=== PATIENT | female | born 1965 ===

== ENCOUNTER 2017-07-02 09:33 | Inpatient (IN) | payer BC ==
[2017-07-02 09:43] VITALS: BMI 28.3
[2017-07-02] MEDS ORDERED: Sodium Chloride 0.9% 1,000 ML IV STA (10:10)
--- NOTE | 2017-07-02 10:19 | ED PDOC ---
Arrival/HPI - General Chief Complaint: ENT Problem Time Seen by Provider: 07/02/17 10:09 Historian: Patient - History of Present Illness Narrative History of Present Illness (Text): 07/02/17 10:10 Siria Morton is a 52 year old female who presents to the emergency department complaining of a sore throat for 3 days. Patient states that she saw her PMD and was prescribed Augmentin, but still has symptoms. Patient denies any other complaints at this time. PMD: Dr. Hernandez Time/Duration: < week Symptom Onset: Gradual Symptom Course: Unchanged Context: Home Past Medical History - Provider Review Nursing Documentation Reviewed: Yes - Infectious Disease Hx of Infectious Diseases: None - Cardiac Hx Cardiac Disorders: Yes Hx Hypertension: Yes - Pulmonary Hx Respiratory Disorders: No - HEENT Hx HEENT Disorder: No - Renal Hx Renal Disorder: No - Endocrine/Metabolic Hx Endocrine Disorders: No - Hematological/Oncological Hx Blood Disorders: No - Integumentary Hx Dermatological Disorder: No - Musculoskeletal/Rheumatological Hx Musculoskeletal Disorders: No - Gastrointestinal Hx Gastrointestinal Disorders: No - Genitourinary/Gynecological Hx Genitourinary Disorders: No - Psychiatric Hx Psychophysiologic Disorder: No Hx Substance Use: No - Surgical History Hx Section: Yes - Anesthesia Hx Anesthesia: Yes Hx Anesthesia Reactions: No Family/Social History - Physician Review Nursing Documentation Reviewed: Yes Family/Social History: No Known Family HX Smoking Status: Never Smoked Hx Alcohol Use: No Hx Substance Use: No Allergies/Home Meds Allergies/Adverse Reactions: Allergies No Known Allergies Allergy (Verified 07/02/17 09:43) Home Medications: Home Meds Medication Instructions Recorded Confirmed Hydrochlorothiazide [Microzide] 12.5 mg PO DAILY 07/02/17 07/02/17 Rosuvastatin Calcium [Crestor] 20 mg PO DAILY 07/02/17 07/02/17 Physical Exam - Physical Exam Narrative Physical Exam (Text): - Review of Systems Constitutional: Normal. absent: Fatigue, Weight Change, Fevers Eyes: Normal ENT: Sore Throat. Respiratory: Normal absent: SOB, Cough, Sputum Cardiovascular: Normal absent: Chest pain, Palpitations, Syncope Gastrointestinal: Normal absent: Abdominal pain, Diarrhea, Nausea, Vomiting Genitourinary: Normal. absent: Dysuria, Frequency, Hematuria Musculoskeletal: Normal. absent: Arthralgias, Back Pain, Neck Pain Skin: Normal Neurological: Normal absent: Focal Weakness Endocrine: Normal Hemo/Lymphatic: Normal Psychiatric: Normal - Physical exam Patient appears age appropriate, speaking full sentences without difficulty. - Systems Exam Head: Present: Atraumatic, Normocephalic Pupils: Present: PERRL Extraocular Muscles: Present: EOMI Conjunctiva: Present: Normal Ears: Normal. Mouth: Bilateral Tonsilar exudates with swelling. No airway compromised. No pain with hyoid manipulation. No floor of mouth pain or elevation. Neck: Present: Normal Range of Motion. No: MIDLINE TENDERNESS, Paraspinal Tenderness Respiratory/Chest: Present: Clear to Auscultation, Good Air Exchange. No: Respiratory Distress, Accessory Muscle Use, Tachypnic Cardiovascular: Present: Regular Rate and Rhythm, Normal S1, S2, Peripheral Pulses Present. No: Murmurs Abdomen: Present: Normal Bowel Sounds, No: Tenderness, Peritoneal Signs, Rebound, Guarding, Distention Back: Present: Normal Inspection. No: Midline Tenderness, Paraspinal Tenderness Upper Extremity: Present: Normal Inspection. No: Cyanosis, Edema Lower Extremity: Present: Normal Inspection. No: Edema Neurological: Present: GCS=15, Speech Normal, cranial nerves II through XII fully intact with no cerebellar abnormality, neuro-sensory fully intact. No focal neurological deficits. Skin: Present: Warm, Dry, Normal Color. No: Rashes Lymphatic: Present: OX3, NI, NC Psychiatric: Present: Alert, Oriented x 3, Normal Insight, Normal Concentration Vital Signs Reviewed: Yes Vital Signs Temp Pulse Resp BP Pulse Ox 07/02/17 12:00 99.9 F H 108 H 18 126/73 98 07/02/17 10:15 104.0 F H 148 H 18 136/89 98 07/02/17 09:44 99.3 F 150 H 20 137/93 H 97 Temperature: Afebrile Blood Pressure: Hypertensive Pulse: Tachycardic Respiratory Rate: Normal Appearance: Positive for: Well-Appearing, Non-Toxic, Comfortable Mental Status: Positive for: Alert and Oriented X 3 - Systems Exam Pharnyx: No: Muffled/Hoarse Voice, Strider, Soft Palate/Uvular Edema Medical Decision Making ED Course and Treatment: 07/02/17 10:10 Impression: 52 year old complaining of a sore throat for 3 days. Differential Diagnosis included but are not limited to: Pharyngitis vs. Tonsillitis vs. Peritonsillar abscess Plan: -- Neck CT soft tissue with contrast -- Blood Culture -- Throat Culture -- Labs -- Tylenol, Cleocin, Toradol, and IV fluids -- Reassess and disposition Progress Notes: EKG shows Sinus Tachycardia at [address]-segment elevations, normal intervals. Interpreted by me. 07/02/17 13:07 Lapeler : Sukhdev Tamez MD PROCEDURE: CT NECK WITH CONTRAST NASOPHARYNX: Mild swelling of the adenoids SUPRAHYOID NECK: There is severe swelling of the left palatine tonsil which measures 25 mm in thickness compared to the right side which is 14 mm. This is seen on image 28 series 2. There is no evidence of a tonsillar abscess. There is no evidence of retropharyngeal soft tissue swelling INFRAHYOID NECK: Unremarkable larynx, hypopharynx, and supraglottic space. Vocal cords intact. MASS: None. GLANDS: Parotid and submandibular glands unremarkable. Normal size thyroid gland, without nodule. LYMPH NODES: Enlarged cervical lymph nodes are seen bilaterally. The largest node is seen on the left side image 37. This measures 19 mm in length. CERVICAL SPINE: No fracture or focal lesion. VASCULAR STRUCTURES: Unremarkable. OTHER FINDINGS: None. IMPRESSION: Swelling of the left palatine tonsil without evidence of tonsillar abscess. Bilateral cervical adenopathy Pt with no airway compromise fever decreased abx given pt states she has no PMD at [facility] agrees for observation dw Dr. Gilmore, accepted to med/surg obs to her service Cayla Frederick and Robi senior consult - Lab Interpretations Lab Results: 07/02/17 10:15 07/02/17 10:15 Lab Results 07/02/17 10:15: Sodium 134, Potassium 3.8, Chloride 94 L, Carbon Dioxide 25, Anion Gap 19, BUN 12, Creatinine 0.8, Est GFR ( Amer) > 60, Est GFR (Non- Af Amer) > 60, Random Glucose 174 H, Calcium 9.7, Total Bilirubin 1.0, AST 23, ALT 24, Alkaline Phosphatase 84, Total Protein 9.3 H, Albumin 4.5, Globulin 4.8 , Albumin/Globulin Ratio 0.9 L 07/02/17 10:15: PT 12.8 H, INR 1.19 H, APTT 42.8 H 07/02/17 10:15: WBC 22.0 H, RBC 4.98, Hgb 14.3, Hct 41.1, MCV 82.5, MCH 28.7, MCHC 34.8, RDW 14.9 H, Plt Count 234, MPV 10.1, Neutrophils % (Manual) 83 H, Band Neutrophils % 6 H, Lymphocytes % (Manual) 6 L, Monocytes % (Manual) 4, Eosinophils % (Manual) 1, Platelet Evaluation Normal I have reviewed the lab results: Yes - RAD Interpretation Radiology Orders: 07/02/17 10:10 NECK SOFT TISSUE W/CONTRAST [CT] Stat - Medication Orders Current Medication Orders: Discontinued Medications Acetaminophen (Tylenol 325mg Tab) 975 mg PO STAT STA Stop: 07/02/17 10:10 Last Admin: 07/02/17 10:35 Dose: 975 mg Dexamethasone (Decadron Inj) 10 mg IVP STAT STA Stop: 07/02/17 13:12 Clindamycin Phosphate 600 mg/ (Sodium Chloride) 54 mls @ 108 mls/hr IVPB STAT STA PRN Reason: Protocol Stop: 07/02/17 10:39 Last Admin: 07/02/17 10:35 Dose: 108 mls/hr Sodium Chloride (Sodium Chloride 0.9%) 1,000 mls @ 1,000 mls/hr IV .Q1H STA Stop: 07/02/17 11:09 Last Admin: 07/02/17 10:36 Dose: 1,000 mls/hr Iohexol (Omnipaque 350 100 Ml) Confirm Administered Dose 350 mg .ROUTE .STK-MED ONE Stop: 07/02/17 11:11 Ketorolac Tromethamine (Toradol) 30 mg IVP STAT STA Stop: 07/02/17 10:10 Last Admin: 07/02/17 10:35 Dose: 30 mg - Scribe Statement The provider has reviewed the documentation as recorded by the Celeste Crews Provider Scribe Attestation: All medical record entries made by the Scribyaquelin were at my direction and personally dictated by me. I have reviewed the chart and agree that the record accurately reflects my personal performance of the history, physical exam, medical decision making, and the department course for this patient. I have also personally directed, reviewed, and agree with the discharge instructions and disposition. Disposition/Present on Arrival - Present on Arrival Any Indicators Present on Arrival: No History of DVT/PE: No History of Uncontrolled Diabetes: No Urinary Catheter: No History of Decub. Ulcer: No History Surgical Site Infection Following: None - Disposition Have Diagnosis and Disposition been Completed?: Yes Diagnosis: Tonsillitis Disposition: HOSPITALIZED Disposition Time: 13:11 Patient Plan: Observation Patient Problems: Current Active Problems Problem Status Onset Tonsillitis Acute Condition: FAIR
[2017-07-02 10:45] LABS: HEMOGLOBIN 14.3 g/dL (12.0-16.0); MEAN CELL VOLUME 82.5 fl (80.0-105.0); MEAN CORPUSCULAR HEMOGLOBIN 28.7 pg (25.0-35.0); MEAN CORPUSCULAR HGB CONC 34.8 g/dl (31.0-37.0); MEAN PLATELET VOLUME 10.1 fl (7.0-11.0); PLATELET COUNT 234 10^3/uL (120.0-450.0); RBC 4.98 10^6/uL (3.5-6.1); RED CELL DISTRIBUTION WIDTH 14.9 % (11.5-14.5)
[2017-07-02 10:57] LABS: ALB/GLOB RATIO 0.9 (1.1-1.8); ALBUMIN 4.5 g/dL (3.0-4.8); ALT/SGPT 24 U/L (7-56); AST/SGOT 23 U/L (15-39); BLOOD UREA NITROGEN 12 mg/dL (7-21); CALCIUM 9.7 mg/dL (8.4-10.5); GFR AFRICAN-AMERICAN > 60; GFR NON-AFRICAN AMERICAN > 60
[2017-07-02 10:59] LABS: INR 1.19 (0.93-1.08); PARTIAL THROMBOPLASTIN TIME 42.8 Seconds (23.7-30.8); PROTHROMBIN TIME 12.8 Seconds (9.9-11.8)
[2017-07-02] MEDS ORDERED: Iohexol 350 MG/100 ML VIAL ONE (11:10)
[2017-07-02 11:11] LABS: BAND 6 % (0-2); EOSINOPHIL 1 % (0.0-3.0); LYMPHOCYTE 6 % (22.0-35.0); MONOCYTE 4 % (1.0-6.0); NEUTROPHIL 83 % (50.0-70.0)
[2017-07-02 11:12] LABS: PLATELET ESTIMATE NORMAL (NORMAL)
--- NOTE | 2017-07-02 11:55 | CT ---
PROCEDURE: CT NECK WITH CONTRAST HISTORY: r/o abscess COMPARISON: None TECHNIQUE: CT of the neck with intravenous contrast. Coronal and sagittal reformats generated. Intravenous contrast dose: 100 cc of Omni 350 Radiation dose: DLP 347 mGy-cm This CT exam was performed using one or more of the following dose reduction techniques: Automated exposure control, adjustment of the mA and/or kV according to patient size, and/or use of iterative reconstruction technique. FINDINGS: NASOPHARYNX: Mild swelling of the adenoids SUPRAHYOID NECK: There is severe swelling of the left palatine tonsil which measures 25 mm in thickness compared to the right side which is 14 mm. This is seen on image 28 series 2. There is no evidence of a tonsillar abscess. There is no evidence of retropharyngeal soft tissue swelling INFRAHYOID NECK: Unremarkable larynx, hypopharynx, and supraglottic space. Vocal cords intact. MASS: None. GLANDS: Parotid and submandibular glands unremarkable. Normal size thyroid gland, without nodule. LYMPH NODES: Enlarged cervical lymph nodes are seen bilaterally. The largest node is seen on the left side image 37. This measures 19 mm in length. CERVICAL SPINE: No fracture or focal lesion. VASCULAR STRUCTURES: Unremarkable. OTHER FINDINGS: None. IMPRESSION: Swelling of the left palatine tonsil without evidence of tonsillar abscess. Bilateral cervical adenopathy
[2017-07-02] MEDS ORDERED: HYDROmorphone 0.5 mg/0.5 ml ISec IVP PRN (16:24)
--- NOTE | 2017-07-02 16:26 | CARD ---
APPROVED REPORT EKG Measurement Heart [id number] <Conclusion> Sinus tachycardia Nonspecific T wave abnormality Abnormal ECG
[2017-07-02] MEDS: Sodium Chloride 0.9% 1,000 ML IV SCH (17:31)
[2017-07-02] MEDS ORDERED: Pneumococcal 23-Valent Vaccine IM ONE (17:55)
--- NOTE | 2017-07-02 19:06 | CP.PCM.CON ---
History of Present Illness - History of Present Illness History of Present Illness: Infectious Disease Consultation: July 02, 2017 52 yo female with 3 day history of sore throat who received Augmentin for treatment from her PMD with no improvement. PMHx: HTN CAD PSHx: Allergies: NKDA Social Hx: No tobacco, EtOH, or illicit drug use Active Medications Atorvastatin Calcium (Lipitor) 80 mg PO DIN [facility] Last Admin: 07/02/17 17:30 Dose: 80 mg Hydrochlorothiazide (Microzide) 12.5 mg PO DAILY [facility] Hydromorphone HCl (Dilaudid) 0.5 mg IVP Q4H PRN PRN Reason: Pain, Mild (1-3) Last Admin: 07/02/17 17:38 Dose: 0.5 mg Ceftriaxone Sodium (Rocephin 1 Gram Ivpb) 1 gm in 100 mls @ 100 mls/hr IVPB DAILY [facility] PRN Reason: Protocol Sodium Chloride (Sodium Chloride 0.9%) 1,000 mls @ 100 mls/hr IV .Q10H [facility] Last Admin: 07/02/17 17:31 Dose: 100 mls/hr Methylprednisolone (Solu-Medrol) 40 mg IVP Q12 [facility] Pantoprazole Sodium (Protonix Inj) 40 mg IVP DAILY [facility] Family Hx: none given ROS: sore throat, cough. No fevers, chills, nausea, vomiting, diarrhea, headaches, dizziness, chest pain, abdominal pain, melena, hematuria, hematemesis, hematochezia, depression, anxiety. Past Patient History - Infectious Disease Hx of Infectious Diseases: None - Past Social History Smoking Status: Never Smoked - CARDIAC Hx Cardiac Disorders: Yes Hx Hypercholesterolemia: Yes Hx Hypertension: Yes - PULMONARY Hx Respiratory Disorders: No - HEENT Hx HEENT Problems: No - RENAL Hx Chronic Kidney Disease: No - ENDOCRINE/METABOLIC Hx Endocrine Disorders: No - HEMATOLOGICAL/ONCOLOGICAL Hx Blood Disorders: No - INTEGUMENTARY Hx Dermatological Problems: No - MUSCULOSKELETAL/RHEUMATOLOGICAL Hx Falls: No - GASTROINTESTINAL Hx Gastrointestinal Disorders: No - GENITOURINARY/GYNECOLOGICAL Hx Genitourinary Disorders: No - PSYCHIATRIC Hx Substance Use: No - SURGICAL HISTORY Hx Surgeries: Yes (c section x2) - ANESTHESIA Hx Anesthesia: Yes Hx Anesthesia Reactions: No Meds Allergies/Adverse Reactions: Allergies Allergy/AdvReac Type Severity Reaction Status Date / Time No Known Allergies Allergy Verified 07/02/17 09:43 - Medications Medications: Current Medications Atorvastatin Calcium (Lipitor) 80 mg PO DIN [facility] Last Admin: 07/02/17 17:30 Dose: 80 mg Hydrochlorothiazide (Microzide) 12.5 mg PO DAILY [facility] Hydromorphone HCl (Dilaudid) 0.5 mg IVP Q4H PRN PRN Reason: Pain, Mild (1-3) Last Admin: 07/02/17 17:38 Dose: 0.5 mg Ceftriaxone Sodium (Rocephin 1 Gram Ivpb) 1 gm in 100 mls @ 100 mls/hr IVPB DAILY [facility] PRN Reason: Protocol Sodium Chloride (Sodium Chloride 0.9%) 1,000 mls @ 100 mls/hr IV .Q10H [facility] Last Admin: 07/02/17 17:31 Dose: 100 mls/hr Methylprednisolone (Solu-Medrol) 40 mg IVP Q12 [facility] Pantoprazole Sodium (Protonix Inj) 40 mg IVP DAILY [facility] Physical Exam - Constitutional Appears: Non-toxic, No Acute Distress - Head Exam Head Exam: ATRAUMATIC, NORMOCEPHALIC - Eye Exam Eye Exam: EOMI, PERRL Pupil Exam: NORMAL ACCOMODATION, PERRL - ENT Exam ENT Exam: Mucous Membranes Moist, Normal External Ear Exam, TM's Normal Bilaterally - Neck Exam Neck exam: Positive for: Full Rom, Normal Inspection - Respiratory Exam Respiratory Exam: Clear to Auscultation Bilateral, NORMAL BREATHING PATTERN. absent: Rales, Rhonchi, Wheezes - Cardiovascular Exam Cardiovascular Exam: REGULAR RHYTHM, RRR, +S1, +S2 - GI/Abdominal Exam GI & Abdominal Exam: Normal Bowel Sounds, Soft. absent: Distended, Tenderness - Extremities Exam Extremities exam: Positive for: full ROM, normal inspection - Neurological Exam Neurological exam: Alert, CN II-XII Intact, Oriented x3 - Psychiatric Exam Psychiatric exam: Normal Affect, Normal Mood - Skin Skin Exam: Intact, Normal Color Results - Vital Signs Recent Vital Signs: Last Vital Signs Temp 99.9 F H 07/02/17 17:46 Pulse 105 H 07/02/17 17:46 Resp 18 07/02/17 17:46 BP 124/79 07/02/17 17:46 Pulse Ox 99 07/02/17 17:13 - Labs Result Diagrams: 07/02/17 10:15 07/02/17 10:15 Assessment & Plan - Assessment and Plan (Free Text) Assessment: 52 yo female with presentation of sore throat for three days. CT scan done showing left tonsilitis ([place]) without evidence of abscess. Bilateral cervical adenopathy seen on CT scan. Supportive care. Was on Augmentin for antibiotic treatment. Given Clindamycin in ER and started on Ceftriaxone for treatment. Will continue Ceftrixone and restart Clindamycin IV 600 mg q8hrs for antibiotic treatment. Thank you for allowing me to participate in the care of the patient, we will follow with you.
[2017-07-02] MEDS: MethylPREDNISolone 40 mg Vial IVP SCH (22:14)
[2017-07-03 07:23] LABS: HEMOGLOBIN 12.4 g/dL (12.0-16.0); MEAN CELL VOLUME 82.2 fl (80.0-105.0); MEAN CORPUSCULAR HEMOGLOBIN 27.9 pg (25.0-35.0); MEAN CORPUSCULAR HGB CONC 33.9 g/dl (31.0-37.0); MEAN PLATELET VOLUME 10.4 fl (7.0-11.0); RBC 4.45 10^6/uL (3.5-6.1); RED CELL DISTRIBUTION WIDTH 14.9 % (11.5-14.5); WHITE BLOOD COUNT 20.5 10^3/ul (4.5-11.0)
[2017-07-03 07:31] LABS: BLOOD UREA NITROGEN 12 mg/dL (7-21); GFR AFRICAN-AMERICAN > 60; GFR NON-AFRICAN AMERICAN > 60
[2017-07-03 07:32] LABS: CALCIUM 9.5 mg/dL (8.4-10.5); HDL CHOLESTEROL 31 mg/dL (29-60)
[2017-07-03 07:33] LABS: % IRON SATURATION 26 % (20-55); IRON 53 ug/dL (45-180); TOTAL IRON BINDING CAPACITY 202 ug/dL (265-497)
[2017-07-03 07:43] LABS: LDL CHOLESTEROL 96 mg/dL (0-129)
--- NOTE | 2017-07-03 07:49 | HP ---
CHIEF COMPLAINT: Throat pain and cannot swallow. HISTORY OF PRESENT ILLNESS: Ms. Siria Morton is a 52-year-old came to the emergency room complaining about sore throat for 3 days, cannot swallow, cannot eat. The patient saw her primary care physician, Dr. Hernandez, got Augmentin, but no relief. Still has symptoms. No nausea, vomiting, or diarrhea. No fever. No chills. No headaches or dizziness. I saw the patient in her room in the presence of her and her nurse. PAST MEDICAL HISTORY: Hypertension and section. FAMILY HISTORY: Father and mother noncontributory. HABITS: Never smoked. No drug. No ethanol. ALLERGIES: THE PATIENT IS NOT ALLERGIC TO ANY MEDICATIONS. HOME MEDICATIONS: Crestor, hydrochlorothiazide, and Augmentin. REVIEW OF SYSTEMS: The patient is seen and examined at the bedside in the presence of the . Still complaining about sore throat. Cannot swallow. No nausea, vomiting, or diarrhea. No fever. No chills. No headache. No dizziness. PHYSICAL EXAMINATION: VITAL SIGNS: Temperature 99.9, T-max of 104.0, pulse 105, blood pressure 125/79, and respiratory rate 18. HEENT: Head is normocephalic and atraumatic. Eyes, PERRLA. Extraocular muscles intact. Conjunctivae clear. Nose patent. Mucous membranes moist. NECK: Supple. No carotid bruits, no thyromegaly. CHEST: Bilaterally symmetrical. HEART: S1 and S2 positive. LUNGS: Clear to auscultation. ABDOMEN: Soft. Bowel sounds present. No organomegaly. EXTREMITIES: No edema. No cyanosis. NEUROLOGIC: The patient is awake and alert. Moving all 4 extremities. No focal neurological deficit. MEDICATIONS: Started on clindamycin, Dilaudid, Lipitor, Lovenox, hydrochlorothiazide, Rocephin, and Solu-Medrol. LABORATORY DATA: White blood cells 22, hemoglobin 14.3, hematocrit 41.1, and platelets 234. Sodium 134, potassium 3.4, BUN 12, creatinine 0.8, glucose 174, and total protein 9.3. ASSESSMENT PLAN: Ms. Siria Morton is a 52-year-old female with leukocytosis, hypochloremia, hyperglycemia, came with the sore throat, fever of 104, seen by Infectious Disease Dr. Rosenbaum. CAT scan done showed left tonsillitis, palatine without evidence of the abscess, bilateral cervical adenopathy seen on CAT scan. Separate supportive care. Now started on clindamycin in ER and ceftriaxone. We will continue ceftriaxone and clindamycin. Warm water salt gargles. ENT and ID called. Discussion done with the family. Tylenol for fever. Started on steroids to decrease inflammation and Dilaudid given for pain, Lipitor for hypertriglyceridemia, Lovenox for DVT prophylaxis, and pantoprazole given for GI prophylaxis. Repeat laboratories. We will followup. Michelle Gilmore MD
[2017-07-03] MEDS: Enoxaparin 40 mg Syringe SC SCH (10:16)
[2017-07-03] MEDS: MethylPREDNISolone 40 mg Vial IVP SCH ×2 (10:17→22:03)
[2017-07-03] MEDS: cefTRIAXone 1 gm 1 GM/100 ML BAG IVPB SCH (10:20)
[2017-07-03 11:24] LABS: URINE BILIRUBIN NEGATIVE (NEGATIVE); URINE BLOOD TRACE-LYSED (NEGATIVE); URINE GLUCOSE (UA) NEGATIVE (NEGATIVE); URINE LEUKOCYTE ESTERASE NEGATIVE Leu/uL (NEGATIVE); URINE NITRATE NEGATIVE (NEGATIVE); URINE PROTEIN NEGATIVE mg/dL (<30 mg/dL); URINE UROBILINOGEN 0.2 E.U./dL (<1 E.U./dL)
[2017-07-03 11:26] LABS: URINE APPEARANCE CLEAR (CLEAR); URINE COLOR LIGHT YELLOW (YELLOW)
[2017-07-03 11:27] LABS: HCG,QUALITATIVE URINE NEGATIVE (NEGATIVE)
[2017-07-03 11:30] LABS: URINE BACTERIA FEW (NEG); URINE RBC 0 - 2 /hpf (0-2); URINE WBC 0 - 2 /hpf (0-6)
[2017-07-03 12:47] LABS: FOLATE > 20.0 ng/mL
--- NOTE | 2017-07-03 17:10 | CP.PCM.PN ---
Subjective - Date & Time of Evaluation Date of Evaluation: 07/03/17 Time of Evaluation: 16:55 - Subjective Subjective: Infectious Disease Follow Up: July 03, 2017 52 yo female with 3 day history of sore throat who received Augmentin for treatment from her PMD with no improvement. Fevers at home up to 103 F. One episode of fever overnight of 104.0 F. Patient with left palatine tonsilitis. The patient with drainage from the enlarged tonsil but the patient states that she is breathing better and able to swallow now. Currently on Clindamycin and Rocephin for antibiotic treatment. Leukocytosis slightly improved to 20.5 today. Afebrile today so far. Objective - Vital Signs/Intake and Output Vital Signs (last 24 hours): Temp Pulse Resp BP Pulse Ox 97.5 F L 90 20 125/84 99 07/03/17 08:10 07/03/17 08:10 07/03/17 08:10 07/03/17 08:10 07/03/17 08:10 Intake and Output: 07/03/17 07/03/17 06:59 18:59 Intake Total 2460 780 Balance 2460 780 - Medications Medications: Current Medications Atorvastatin Calcium (Lipitor) 80 mg PO DIN [facility] Last Admin: 07/02/17 17:30 Dose: 80 mg Enoxaparin Sodium (Lovenox) 40 mg SC DAILY [facility] PRN Reason: Protocol Last Admin: 07/03/17 10:16 Dose: 40 mg Hydrochlorothiazide (Microzide) 12.5 mg PO DAILY [facility] Last Admin: 07/03/17 10:19 Dose: 12.5 mg Hydromorphone HCl (Dilaudid) 0.5 mg IVP Q4H PRN PRN Reason: Pain, Mild (1-3) Last Admin: 07/02/17 17:38 Dose: 0.5 mg Ceftriaxone Sodium (Rocephin 1 Gram Ivpb) 1 gm in 100 mls @ 100 mls/hr IVPB DAILY [facility] PRN Reason: Protocol Last Admin: 07/03/17 10:20 Dose: 100 mls/hr Sodium Chloride (Sodium Chloride 0.9%) 1,000 mls @ 100 mls/hr IV .Q10H [facility] Last Admin: 07/02/17 17:31 Dose: 100 mls/hr Clindamycin Phosphate 600 mg/ (Sodium Chloride) 54 mls @ 102 mls/hr IVPB Q8 [facility] PRN Reason: Protocol Last Admin: 07/03/17 14:16 Dose: 102 mls/hr Methylprednisolone (Solu-Medrol) 40 mg IVP Q12 [facility] Last Admin: 07/03/17 10:17 Dose: 40 mg Pantoprazole Sodium (Protonix Inj) 40 mg IVP DAILY [facility] Last Admin: 07/03/17 10:18 Dose: 40 mg - Labs Labs: 07/03/17 06:50 07/03/17 06:50 PT 12.8 Seconds (9.9-11.8) H 07/02/17 10:15 INR 1.19 (0.93-1.08) H 07/02/17 10:15 APTT 42.8 Seconds (23.7-30.8) H 07/02/17 10:15 - Constitutional Appears: Non-toxic, No Acute Distress - Head Exam Head Exam: ATRAUMATIC, NORMOCEPHALIC - Eye Exam Eye Exam: EOMI, PERRL Pupil Exam: NORMAL ACCOMODATION, PERRL - ENT Exam ENT Exam: Mucous Membranes Moist, Normal External Ear Exam, TM's Normal Bilaterally Additional comments: Left tonsilar swelling and erythema with drainage. - Neck Exam Neck Exam: Full ROM, Normal Inspection - Respiratory Exam Respiratory Exam: Clear to Ausculation Bilateral, NORMAL BREATHING PATTERN. absent: Rales, Rhonchi, Wheezes - Cardiovascular Exam Cardiovascular Exam: Tachycardia, RRR, +S1, +S2 - GI/Abdominal Exam GI & Abdominal Exam: Soft, Normal Bowel Sounds. absent: Distended, Tenderness - Extremities Exam Extremities Exam: Full ROM, Normal Inspection - Neurological Exam Neurological Exam: Alert, Awake, CN II-XII Intact, Oriented x3 - Psychiatric Exam Psychiatric exam: Normal Affect, Normal Mood - Skin Skin Exam: Intact, Normal Color Assessment and Plan - Assessment and Plan (Free Text) Assessment: 52 yo female with presentation of sore throat for three days. CT scan done showing left tonsilitis ([place]) without evidence of abscess. Bilateral cervical adenopathy seen on CT scan. Supportive care. Was on Augmentin for antibiotic treatment. Given Clindamycin in ER and started on Ceftriaxone for treatment. Will continue Ceftrixone and restart Clindamycin IV 600 mg q8hrs for antibiotic treatment. Culture currently negative to date. Supportive care. Awaiting ENT evaluation. The patient will likely need 14 days of antibiotics which can be finished orally based on the culture results. Thank you for allowing me to participate in the care of the patient, we will follow with you.
[2017-07-03] MEDS: Sodium Chloride 0.9% 1,000 ML IV SCH (22:04)
--- NOTE | 2017-07-04 00:24 | CP.PCM.PN ---
Subjective - Date & Time of Evaluation Date of Evaluation: 07/03/17 Time of Evaluation: 07:30 - Subjective Subjective: 52 yo female with 3 day history of sore throat who received Augmentin for treatment from her PMD with no improvement. Fevers at home up to 103 F. One episode of fever overnight of 104.0 F. Patient with left palatine tonsilitis. The patient with drainage from the enlarged tonsil but the patient states that she is breathing better and able to swallow now. Currently on Clindamycin and Rocephin for antibiotic treatment. Leukocytosis slightly improved to 20.5 today. Afebrile today so far. Objective - Vital Signs/Intake and Output Vital Signs (last 24 hours): Temp Pulse Resp BP Pulse Ox 98.1 F 94 H 20 136/91 H 99 07/03/17 16:00 07/03/17 16:00 07/03/17 16:00 07/03/17 16:00 07/03/17 16:00 Intake and Output: 07/03/17 07/04/17 18:59 06:59 Intake Total 780 630 Balance 780 630 - Medications Medications: Current Medications Atorvastatin Calcium (Lipitor) 80 mg PO DIN [facility] Last Admin: 07/03/17 17:48 Dose: 80 mg Enoxaparin Sodium (Lovenox) 40 mg SC DAILY [facility] PRN Reason: Protocol Last Admin: 07/03/17 10:16 Dose: 40 mg Hydrochlorothiazide (Microzide) 12.5 mg PO DAILY [facility] Last Admin: 07/03/17 10:19 Dose: 12.5 mg Hydromorphone HCl (Dilaudid) 0.5 mg IVP Q4H PRN PRN Reason: Pain, Mild (1-3) Last Admin: 07/02/17 17:38 Dose: 0.5 mg Ceftriaxone Sodium (Rocephin 1 Gram Ivpb) 1 gm in 100 mls @ 100 mls/hr IVPB DAILY [facility] PRN Reason: Protocol Last Admin: 07/03/17 10:20 Dose: 100 mls/hr Sodium Chloride (Sodium Chloride 0.9%) 1,000 mls @ 100 mls/hr IV .Q10H [facility] Last Admin: 07/03/17 22:04 Dose: 100 mls/hr Clindamycin Phosphate 600 mg/ (Sodium Chloride) 54 mls @ 102 mls/hr IVPB Q8 [facility] PRN Reason: Protocol Last Admin: 07/03/17 22:03 Dose: 102 mls/hr Methylprednisolone (Solu-Medrol) 40 mg IVP Q12 [facility] Last Admin: 07/03/17 22:03 Dose: 40 mg Pantoprazole Sodium (Protonix Inj) 40 mg IVP DAILY [facility] Last Admin: 07/03/17 10:18 Dose: 40 mg - Labs Labs: 07/03/17 06:50 07/03/17 06:50 PT 12.8 Seconds (9.9-11.8) H 07/02/17 10:15 INR 1.19 (0.93-1.08) H 07/02/17 10:15 APTT 42.8 Seconds (23.7-30.8) H 07/02/17 10:15 - Constitutional Appears: Well - Head Exam Head Exam: ATRAUMATIC, NORMAL INSPECTION, NORMOCEPHALIC - Eye Exam Eye Exam: EOMI, Normal appearance, PERRL Pupil Exam: NORMAL ACCOMODATION, PERRL - ENT Exam ENT Exam: Mucous Membranes Moist, Normal Exam - Neck Exam Neck Exam: Full ROM, Normal Inspection. absent: Lymphadenopathy - Respiratory Exam Respiratory Exam: Clear to Ausculation Bilateral, NORMAL BREATHING PATTERN - Cardiovascular Exam Cardiovascular Exam: REGULAR RHYTHM, +S1, +S2. absent: Murmur - GI/Abdominal Exam GI & Abdominal Exam: Soft, Normal Bowel Sounds. absent: Tenderness - Rectal Exam Rectal Exam: NORMAL INSPECTION - Exam Exam: Circumcision, NORMAL INSPECTION External exam: NORMAL EXTERNAL EXAM Speculum exam: NORMAL SPECULUM EXAM Bimanual exam: NORMAL BIMANUAL EXAM - Extremities Exam Extremities Exam: Full ROM, Normal Capillary Refill, Normal Inspection. absent : Joint Swelling, Pedal Edema - Back Exam Back Exam: NORMAL INSPECTION - Neurological Exam Neurological Exam: Alert, Awake, CN II-XII Intact, Normal Gait, Oriented x3 - Psychiatric Exam Psychiatric exam: Normal Affect, Normal Mood - Skin Skin Exam: Dry, Intact, Normal Color, Warm Assessment and Plan - Assessment and Plan (Free Text) Assessment: 52 yo female with presentation of sore throat for three days. CT scan done showing left tonsilitis ([place]) without evidence of abscess. Bilateral cervical adenopathy seen on CT scan. Supportive care. Was on Augmentin for antibiotic treatment. Given Clindamycin in ER and started on Ceftriaxone for treatment. Will continue Ceftrixone and restart Clindamycin IV 600 mg q8hrs for antibiotic treatment. Culture currently negative to date. Supportive care. Awaiting ENT evaluation , not done yet . The patient will likely need 14 days of antibiotics which can be finished orally based on the culture results.gi dvt prophylaxes
--- NOTE | 2017-07-04 01:39 | CON ---
DATE: 07/03/2017 REASON FOR CONSULTATION: Exudative tonsillitis. CONSULTING PHYSICIAN: Augustine Frederick DO. REFERRING PHYSICIAN: Mejia Polanco DO. HISTORY OF PRESENT ILLNESS: This is a 52-year-old female with past medical history of hypertension, comes in complaining of a sore throat for 3 days. The patient reports that she has been having difficulty eating, drinking and tolerating p.o. as the pain has been significant. The patient does not report any shortness of breath, difficulty breathing; however, she does report fever of 103 at home. She saw her primary care physician who prescribed her Augmentin, which she took 3 pills without resolution of her symptoms; therefore, she presented to the emergency room. The patient also reports that she has very dry nares and has some pain in her nose with some redness associated to the columellar region, which occurs about a few times a year and she feels that this may be associated with her throat pain. At this point, since being admitted and receiving IV antibiotics, she reports feeling a lot better since yesterday. She denies any otalgia, changes in vision, and any further fever or chills. At this point, she denies dysphagia or odynophagia, neck pain, chest pain. Denies any other ears, nose or throat complaints. PAST MEDICAL HISTORY: Hypertension. PAST SURGICAL HISTORY: . No head or neck surgeries. ALLERGIES: NO KNOWN DRUG ALLERGIES. HOME MEDICATIONS: Include, Crestor, hydrochlorothiazide, and Augmentin. SOCIAL HISTORY: Denies history of smoking or alcohol abuse. REVIEW OF SYSTEMS: Negative as per HPI. PHYSICAL EXAMINATION: GENERAL: She is awake, alert, and oriented X3. No acute distress, lying comfortably. VITAL SIGNS: Temperature is 97.5, pulse rate is 90, blood pressure is 125/84, respirations are 20, and O2 saturation is 99% on room air. HEENT: Eyes; extraocular movements intact. No visual changes. Ears; the external auricles are unremarkable. Nose; patent bilaterally. No discharge and no epistaxis, but the nasal mucosa did appear dry and she does have slight erythema to the columellar and also the septum muscle lips. Oral cavity; oropharynx looks unremarkable for mass. No edema, unremarkable. Her tongue is mobile and midline. Oral mucosa is moist and soft palate and uvula are midline and non-edematous. She does have enlarged tonsils that appear to be 3+ with tonsillar exudates on the left more than on the right. She also has tonsillar and pharyngeal erythema. NECK: Supple. Slightly tender to palpation more on the left. She does have reactive lymphadenopathy in level 2 on the left and level 1 on the right. Trachea is midline. No thyromegaly appreciated. RESPIRATORY: Nonlabored and symmetrical bilaterally. LABORATORY DATA: White blood cell count is 20.5, hemoglobin 12.2, hematocrit 36.6 and platelets 261. PT 12.8. INR 1.19, APTT 42.8. Sodium 140, potassium 4.2, chloride 103, bicarbonate 28, creatinine 0.5 and BUN 12. She has a rapid strep test that is pending. IMAGING: She has a CT of the neck, which reads as enlarged swelling of the palatine tonsils, left greater than the right without evidence of any peritonsillar abscess and this enlarged cervical lymph nodes bilaterally, bigger on the left than on the right. ASSESSMENT: This is a 52-year-old female who presents with exudative tonsillitis without evidence of peritonsillar abscess. At this point, we would recommend continuing medical management with IV antibiotics. We would continue clindamycin and would also follow up with the rapid strep test. If the patient does not seem to be improving, would also recommend ordering a monospot test. Chances are that the patient's complaint of some pain and redness to her nose, would consider treating her with Bactroban to the nares. Otherwise, at this point, the patient appears stable and seems to be improving. We would clear her for discharge from the ears, nose and throat perspective and sending her home with p.o. clindamycin. The remainder of the management is as per the primary team. Thank you for allowing us to participate in this patient's care. Augustine Frederick DO
[2017-07-04] MEDS: cefTRIAXone 1 gm 1 GM/100 ML BAG IVPB SCH (09:17)
[2017-07-04] MEDS: Sodium Chloride 0.9% 1,000 ML IV SCH (09:18)
[2017-07-04] MEDS: MethylPREDNISolone 40 mg Vial IVP SCH (09:18)
[2017-07-04] MEDS: Enoxaparin 40 mg Syringe SC SCH (09:18)
[2017-07-04 15:21] LABS: BASO # 0.01 K/mm3 (0.0-2.0); GRAN # 17.93 (1.4-6.5); GRAN % 86.6 % (50.0-68.0); HEMOGLOBIN 12.1 g/dL (12.0-16.0); LYMPH # 1.7 (1.2-3.4); LYMPH % 8.3 % (22.0-35.0); MEAN CELL VOLUME 83.1 fl (80.0-105.0); MEAN CORPUSCULAR HEMOGLOBIN 28.4 pg (25.0-35.0); MEAN CORPUSCULAR HGB CONC 34.2 g/dl (31.0-37.0); MEAN PLATELET VOLUME 10.3 fl (7.0-11.0); MONO # 1.1 (0.1-0.6); MONO % 5.1 % (1.0-6.0); PLATELET COUNT 350 10^3/uL (120.0-450.0); RBC 4.26 10^6/uL (3.5-6.1); RED CELL DISTRIBUTION WIDTH 14.9 % (11.5-14.5); WHITE BLOOD COUNT 20.7 10^3/ul (4.5-11.0)
--- NOTE | 2017-07-04 16:24 | CP.PCM.PN ---
Subjective - Date & Time of Evaluation Date of Evaluation: 07/04/17 Time of Evaluation: 16:00 - Subjective Subjective: Infectious Disease Follow Up: July 04, 2017 52 yo female with 3 day history of sore throat who received Augmentin for treatment from her PMD with no improvement. Fevers at home up to 103 F. One episode of fever overnight of 104.0 F. Patient with left palatine tonsilitis. The patient with drainage from the enlarged tonsil but the patient states that she is breathing better and able to swallow now. Currently on Clindamycin and Rocephin for antibiotic treatment. Leukocytosis of 20.7 today. Afebrile today so far. Patient able to eat without issues. No fevers. Patient eager to go home today. Objective - Vital Signs/Intake and Output Vital Signs (last 24 hours): Temp Pulse Resp BP Pulse Ox 97.9 F 88 20 139/90 100 07/04/17 08:00 07/04/17 08:00 07/04/17 08:00 07/04/17 08:00 07/04/17 08:00 Intake and Output: 07/04/17 07/04/17 06:59 18:59 Intake Total 120 540 Balance 120 540 - Medications Medications: Current Medications Atorvastatin Calcium (Lipitor) 80 mg PO DIN [facility] Last Admin: 07/03/17 17:48 Dose: 80 mg Enoxaparin Sodium (Lovenox) 40 mg SC DAILY [facility] PRN Reason: Protocol Last Admin: 07/04/17 09:18 Dose: 40 mg Hydrochlorothiazide (Microzide) 12.5 mg PO DAILY [facility] Last Admin: 07/04/17 09:17 Dose: 12.5 mg Hydromorphone HCl (Dilaudid) 0.5 mg IVP Q4H PRN PRN Reason: Pain, Mild (1-3) Last Admin: 07/02/17 17:38 Dose: 0.5 mg Ceftriaxone Sodium (Rocephin 1 Gram Ivpb) 1 gm in 100 mls @ 100 mls/hr IVPB DAILY [facility] PRN Reason: Protocol Last Admin: 07/04/17 09:17 Dose: 100 mls/hr Sodium Chloride (Sodium Chloride 0.9%) 1,000 mls @ 100 mls/hr IV .Q10H [facility] Last Admin: 07/04/17 09:18 Dose: 100 mls/hr Clindamycin Phosphate 600 mg/ (Sodium Chloride) 54 mls @ 102 mls/hr IVPB Q8 [facility] PRN Reason: Protocol Last Admin: 07/04/17 14:20 Dose: 102 mls/hr Methylprednisolone (Solu-Medrol) 40 mg IVP Q12 [facility] Last Admin: 07/04/17 09:18 Dose: 40 mg Pantoprazole Sodium (Protonix Inj) 40 mg IVP DAILY [facility] Last Admin: 07/04/17 09:18 Dose: 40 mg - Labs Labs: 07/04/17 15:16 PT 12.8 Seconds (9.9-11.8) H 07/02/17 10:15 INR 1.19 (0.93-1.08) H 07/02/17 10:15 APTT 42.8 Seconds (23.7-30.8) H 07/02/17 10:15 Assessment and Plan - Assessment and Plan (Free Text) Assessment: 52 yo female with presentation of sore throat for three days. CT scan done showing left tonsilitis ([place]) without evidence of abscess. Bilateral cervical adenopathy seen on CT scan. Supportive care. Was on Augmentin for antibiotic treatment. Given Clindamycin in ER and started on Ceftriaxone for treatment. Will continue Ceftrixone and restart Clindamycin IV 600 mg q8hrs for antibiotic treatment. Culture currently negative to date. Supportive care. Awaiting ENT evaluation. The patient will likely need 14 days of antibiotics which can be finished orally based on the culture results. She can go home with Augmentin 875 mg BID and Clindamycin 300 mg TID for 14 days. She can follow me as an outpatient in 2 weeks for ID followup. Thank you for allowing me to participate in the care of the patient, we will follow with you.
[2017-07-04 17:20] VITALS: BP 139/90; PULSE 88; RESP 20; TEMP 97.9; O2SAT 100
== END 2017-07-04 16:50 | disposition home or self-care (01) | DRG 153 ==
LOC: ED 09:33 → ERH 13:11 → 5RSO 14:33 → OBSVTOIN 07-04 00:25
PROVIDERS: ADMIT Internal Medicine; ATTEND Internal Medicine
DX: J03.90 Acute tonsillitis, unspecified (principal); I10 Essential (primary) hypertension; E78.1 Pure hyperglyceridemia; I25.10 Atherosclerotic heart disease of native coronary artery without angina pectoris; R59.0 Localized enlarged lymph nodes

== ENCOUNTER 2017-07-08 11:22 | Inpatient (IN) | payer BC ==
[2017-07-08 11:22] VITALS: BMI 28.3
--- NOTE | 2017-07-08 11:58 | ED PDOC ---
Arrival/HPI - General Chief Complaint: Fever Time Seen by Provider: 07/08/17 11:29 Historian: Patient - History of Present Illness Narrative History of Present Illness (Text): 07/08/17 11:58 52 y/o female, pmh including tonsillitis, nkda, c/o throat pain/fatigue/fever x 6 days. Pt. was seen in the ER about 1 week ago for bilateral tonsillitis with exudate, been on the clindamycin and augmentin, seen by the ENT and Infectious disease, still not feeling well, told to come back to the ER if not feeling better, admits bodyache, no night sweat, no rash, no numbness or tingling, no chest pain or shortness of breath, no palpitation, no dizziness, no other medical or psychological complaints. Past Medical History - Provider Review Nursing Documentation Reviewed: Yes - Infectious Disease Hx of Infectious Diseases: None - Reproductive Menopause: No - Cardiac Hx Cardiac Disorders: Yes Hx Hypertension: Yes - Pulmonary Hx Respiratory Disorders: No - HEENT Hx HEENT Disorder: No - Renal Hx Renal Disorder: No - Endocrine/Metabolic Hx Endocrine Disorders: No - Hematological/Oncological Hx Blood Disorders: No - Integumentary Hx Dermatological Disorder: No - Musculoskeletal/Rheumatological Hx Falls: No - Gastrointestinal Hx Gastrointestinal Disorders: No - Genitourinary/Gynecological Hx Genitourinary Disorders: No - Psychiatric Hx Psychophysiologic Disorder: No Hx Substance Use: No - Surgical History Hx Section: Yes - Anesthesia Hx Anesthesia: Yes Hx Anesthesia Reactions: No Family/Social History - Physician Review Nursing Documentation Reviewed: Yes Family/Social History: Unknown Family HX Smoking Status: Never Smoked Hx Alcohol Use: No Hx Substance Use: No Allergies/Home Meds Allergies/Adverse Reactions: Allergies No Known Allergies Allergy (Verified 07/02/17 09:43) Home Medications: Home Meds Medication Instructions Recorded Confirmed Hydrochlorothiazide [Microzide] 12.5 mg PO DAILY 07/02/17 07/08/17 Rosuvastatin Calcium [Crestor] 20 mg PO DAILY 07/02/17 07/08/17 Review of Systems - Review of Systems Constitutional: Fatigue, Fevers Eyes: absent: Vision Changes ENT: absent: Hearing Changes Respiratory: absent: SOB, Cough Cardiovascular: absent: Chest Pain Gastrointestinal: absent: Abdominal Pain, Nausea, Vomiting Musculoskeletal: Arthralgias, Myalgias Skin: absent: Rash, Pruritis Neurological: absent: Headache, Dizziness, Gait Changes, Speech Changes Physical Exam Vital Signs Reviewed: Yes Vital Signs Temp Pulse Resp BP Pulse Ox 07/08/17 15:55 100 H 18 111/68 100 07/08/17 14:00 109 H 18 112/64 98 07/08/17 12:18 132 H 17 119/79 99 07/08/17 11:43 100.3 F H 141 H 20 96/49 L 98 Temperature: Afebrile Pulse: Tachycardic Respiratory Rate: Normal Appearance: Positive for: Well-Appearing, Non-Toxic, Uncomfortable Pain Distress: Severe Mental Status: Positive for: Alert and Oriented X 3 - Systems Exam Head: Present: Atraumatic, Normocephalic Pupils: Present: PERRL Extroacular Muscles: Present: EOMI Conjunctiva: Present: Normal Ears: Present: NORMAL TM, Normal Canal. No: Erythema Mouth: Present: Moist Mucous Membranes Pharnyx: Present: TONSILS ENLARGED (Rt. tonsil with mild exudate). No: ERYTHEMA , Peritonsilar Swelling, Uvular Deviation, Muffled/Hoarse Voice, [place], Soft Palate/Uvular Edema Neck: Present: Normal Range of Motion, Trachea Midline. No: Meningeal Signs, MIDLINE TENDERNESS, Paraspinal Tenderness, Lymphadenopathy Respiratory/Chest: Present: Clear to Auscultation, Good Air Exchange. No: Respiratory Distress, Accessory Muscle Use Cardiovascular: Present: Regular Rate and Rhythm, Normal S1, S2. No: Murmurs Abdomen: Present: Normal Bowel Sounds. No: Tenderness, Distention, Peritoneal Signs Back: Present: Normal Inspection. No: CVA Tenderness Upper Extremity: Present: Normal Inspection. No: Cyanosis, Edema Lower Extremity: Present: Normal Inspection. No: Edema Neurological: Present: GCS=15, Speech Normal, Motor Func Grossly Intact, Gait Normal, Memory Normal Skin: Present: Warm, Dry, Normal Color. No: Rashes Psychiatric: Present: Alert, Oriented x 3, Normal Insight, Normal Concentration Medical Decision Making ED Course and Treatment: 07/08/17 12:16 -Labs/blood culture/vbg/monospot -IVF/toradol/tylenol -ekg/chest xray -will reasses 07/08/17 13:58 -EKG:Sinus Tachycardia @ 137 BPM, no ST elevation or depression, no T wave inversion. -Throat culture from last visit is negative: this is likely mono. -Chest x-ray: no active disease -Labs show: wbc 19 with elevation of LFT. Lactate is 2.0 -UA show no UTI -IV rocephine ordered. -Pt. is fatigue, still tachycardic, will need admission and pending for the mono test til result which it can take 1-2 days. -Paging Dr. Gilmore for admission. 07/08/17 15:15 -I spoke to Dr. Gilmore, discussed about the vital signs/labs/treatment and observation plan with Dr. Rosenbaum as routine consult. -I discussed with Dr. Dhillon about the case and she will put in the observation order. - Lab Interpretations Lab Results: 07/08/17 12:35 07/08/17 12:35 Lab Results 07/08/17 13:53: Urine Color Light yellow, Urine Appearance Clear, Urine pH 7.0, Ur Specific [place] 1.010, Urine Protein Negative, Urine Glucose (UA) Negative, Urine Ketones Negative, Urine Blood Negative, Urine Nitrate Negative, Urine Bilirubin Negative, Urine Urobilinogen 0.2, Ur Leukocyte Esterase Negative 07/08/17 12:35: PT 12.0 H, INR 1.11 H, APTT 34.5 H 07/08/17 12:35: pO2 74 H, VBG pH 7.46 H, VBG pCO2 38.0 L, VBG HCO3 27.0, VBG Total CO2 28.2 H, VBG O2 Sat (Calc) 97.6 H, VBG Base Excess 3.1 H, VBG Potassium 5.0, Sodium 130.0 L, Chloride 97.0 L, Glucose 115 H, Lactate 2.0, FiO2 21.0, Venous Blood Potassium 5.0 07/08/17 12:35: Sodium 131 L, Chloride 95 L, Potassium 4.7, Carbon Dioxide 24, Anion Gap 17, BUN 9, Creatinine 0.7, Est GFR ( Amer) > 60, Est GFR (Non- Af Amer) > 60, Random Glucose 115 H, Calcium 9.4, Total Bilirubin 0.9, AST 60 H , ALT 75 H, Alkaline Phosphatase 75, Total Protein 8.3, Albumin 4.1, Globulin 4.2, Albumin/Globulin Ratio 1.0 L 08/14/17 12:35: WBC 19.7 H, RBC 4.81, Hgb 13.4, Hct 39.7, MCV 82.5, MCH 27.9, MCHC 33.8, RDW 15.0 H, Plt Count 356, MPV 9.9, Gran % 81.0 H, Lymph % (Auto) 10.5 L, [place] % (Auto) 8.0 H, Eos % (Auto) 0.3 L, Baso % (Auto) 0.2, Gran # 16.01 H, Lymph # 2.1, [place] # 1.6 H, Eos # 0.1, Baso # 0.03 I have reviewed the lab results: Yes Interpretation: Abnormal lab values (wbc 19, elevation of LFT) - RAD Interpretation Radiology Orders: 07/08/17 12:07 CHEST PORTABLE [RAD] Stat no active disease Machine Tender: Radiologist - EKG Interpretation EKG Interpretation (Text): 07/08/17 12:23 Sinus Tachycardia @ 137 BPM, no ST elevation or depression, no T wave inversion. Interpreted by ED Physician: Yes Type: 12 lead EKG - Medication Orders Current Medication Orders: Sodium Chloride (Sodium Chloride 0.9%) 1,000 mls @ 250 mls/hr IV .Q4H [facility] Last Admin: 07/08/17 14:01 Dose: 250 mls/hr Discontinued Medications Acetaminophen (Tylenol 650mg/20.3ml Solution Ud) 650 mg PO STAT [facility] Stop: 07/08/17 12:08 Last Admin: 07/08/17 12:18 Dose: 650 mg Sodium Chloride (Sodium Chloride 0.9%) 1,000 mls @ 999 mls/hr IV .Q1H1M [facility] Stop: 07/08/17 13:07 Last Admin: 07/08/17 12:17 Dose: 999 mls/hr Ceftriaxone Sodium (Rocephin 1 Gram Ivpb) 1 gm in 100 mls @ 200 mls/hr IVPB STAT [facility] PRN Reason: Protocol Stop: 07/08/17 13:47 Last Admin: 07/08/17 13:59 Dose: 200 mls/hr Ketorolac Tromethamine (Toradol) 30 mg IVP STAT STA Stop: 07/08/17 12:08 Last Admin: 07/08/17 12:18 Dose: 30 mg - PA / REMOTE SENSING ENGINEER / Resident Statement /DO has reviewed & agrees with the documentation as recorded. Disposition/Present on Arrival - Present on Arrival Any Indicators Present on Arrival: No History of DVT/PE: No History of Uncontrolled Diabetes: No Urinary Catheter: No History of Decub. Ulcer: No History Surgical Site Infection Following: None - Disposition Have Diagnosis and Disposition been Completed?: Yes Diagnosis: Tonsillitis with exudate, Fatigue, Viral syndrome, Leukocytosis Disposition: HOSPITALIZED Disposition Time: 12:17 Patient Plan: Observation Patient Problems: Current Active Problems Problem Status Onset Fatigue Acute Leukocytosis Acute Tonsillitis with exudate Acute Viral syndrome Acute Condition: STABLE
[2017-07-08] MEDS ORDERED: Acetaminophen 650mg/20.3ml solution UD PO STA (12:07)
[2017-07-08] MEDS ORDERED: Sodium Chloride 0.9% 1,000 ML IV STA (12:07)
[2017-07-08 12:54] LABS: ADD MANUAL DIFF? NO
[2017-07-08 13:00] LABS: BASO # 0.03 K/mm3 (0.0-2.0); BASO % 0.2 % (0.0-3.0); EOS # 0.1 (0.0-0.7); EOS % 0.3 % (1.5-5.0); GRAN # 16.01 (1.4-6.5); HEMATOCRIT 39.7 % (36.0-48.0); LYMPH # 2.1 (1.2-3.4); LYMPH % 10.5 % (22.0-35.0); MEAN CELL VOLUME 82.5 fl (80.0-105.0); MEAN CORPUSCULAR HEMOGLOBIN 27.9 pg (25.0-35.0); MEAN CORPUSCULAR HGB CONC 33.8 g/dl (31.0-37.0); MEAN PLATELET VOLUME 9.9 fl (7.0-11.0); MONO # 1.6 (0.1-0.6); PLATELET COUNT 356 10^3/uL (120.0-450.0); VENOUS BLOOD GAS BASE EXCESS 3.1 mmol/L (0.0-2.0); VENOUS BLOOD PH 7.46 (7.32-7.43); WHITE BLOOD COUNT 19.7 10^3/ul (4.5-11.0)
[2017-07-08 13:11] LABS: INR 1.11 (0.93-1.08); PARTIAL THROMBOPLASTIN TIME 34.5 Seconds (23.7-30.8)
[2017-07-08] MEDS ORDERED: cefTRIAXone 1 gm 1 GM/100 ML BAG IVPB STA (13:18)
[2017-07-08 13:42] LABS: ALKALINE PHOSPHATASE 75 U/L (38-133); ALT/SGPT 75 U/L (7-56); AST/SGOT 60 U/L (15-39); BILIRUBIN,TOTAL 0.9 mg/dL (0.2-1.3); BLOOD UREA NITROGEN 9 mg/dL (7-21); CALCIUM 9.4 mg/dL (8.4-10.5); CARBON DIOXIDE 24 mmol/L (21-33); CHLORIDE 95 mmol/L (98-107); GFR AFRICAN-AMERICAN > 60; GLUCOSE,RANDOM 115 mg/dL (70-110); POTASSIUM 4.7 mmol/L (3.6-5.0); SODIUM 131 mmol/L (132-148); TOTAL PROTEIN 8.3 g/dL (5.8-8.3)
--- NOTE | 2017-07-08 13:44 | RAD ---
HISTORY: medical clearance . Technique: Portable study performed @ 12:17 COMPARISON: No prior. FINDINGS: LUNGS: No active pulmonary disease. PLEURA: No significant pleural effusion identified, no pneumothorax apparent. CARDIOVASCULAR: Normal. OSSEOUS STRUCTURES: No significant abnormalities. VISUALIZED UPPER ABDOMEN: Normal. OTHER FINDINGS: None. IMPRESSION: No active disease. Concordant results with the preliminary interpretation rendered by the emergency department physician procedure.
[2017-07-08] MEDS: Sodium Chloride 0.9% 1,000 ML IV SCH ×4 (14:01→23:54)
[2017-07-08 14:18] LABS: URINE BILIRUBIN NEGATIVE (NEGATIVE); URINE BLOOD NEGATIVE (NEGATIVE); URINE GLUCOSE (UA) NEGATIVE (NEGATIVE); URINE KETONE NEGATIVE (NEGATIVE); URINE LEUKOCYTE ESTERASE NEGATIVE Leu/uL (NEGATIVE); URINE PROTEIN NEGATIVE mg/dL (<30 mg/dL); URINE UROBILINOGEN 0.2 E.U./dL (<1 E.U./dL)
[2017-07-08 14:19] LABS: URINE APPEARANCE CLEAR (CLEAR); URINE COLOR LIGHT YELLOW (YELLOW)
--- NOTE | 2017-07-08 15:55 | CARD ---
APPROVED REPORT EKG Measurement Heart [id number] <Conclusion> Sinus tachycardia Otherwise normal ECG
[2017-07-08 16:22] LABS: VENOUS BLOOD GAS BASE EXCESS 0.6 mmol/L (0.0-2.0); VENOUS BLOOD PH 7.36 (7.32-7.43)
[2017-07-08] MEDS ORDERED: Pneumococcal 23-Valent Vaccine IM ONE (19:07)
[2017-07-08] MEDS: Ampicillin/Sulbactam 3 GM in Sodium Chloride 0.9% 100 ML IVPB SCH (23:15)
[2017-07-09] MEDS: Ampicillin/Sulbactam 3 GM in Sodium Chloride 0.9% 100 ML IVPB SCH ×2 (05:36→12:19)
[2017-07-09] MEDS ORDERED: Iohexol 350 MG/100 ML VIAL ONE (08:58)
--- NOTE | 2017-07-09 09:41 | HP ---
CHIEF COMPLAINT: Fever and sore throat. HISTORY OF PRESENT ILLNESS: Ms. Praveen Beverly is a 52 years old female with past medical history of tonsillitis. who was admitted 6 days ago in [facility] for tonsillitis and pharyngitis. She was seen by infectious disease doctor Dr. Rosenbaum, who was given the course of antibiotics and discharged home with clindamycin and Augmentin. Actually even before that the patient got treatment with Augmentin with her own primary care physician until the treatment which was seen by ENT also. She is not feeling well and came back to emergency room with the fever and body aches and sore throat. No palpitation, no dizziness, and no other medical problems. PAST MEDICAL HISTORY: Hypertension, esophageal infection, sore throat, and was discharged recently from [facility]. FAMILY HISTORY: Father and mother noncontributory. HABITS: Never smoked. No drugs and no ethanol. ALLERGIES: THE PATIENT IS NOT ALLERGIC WITH ANY MEDICATIONS. HOME MEDICATIONS: Crestor, Microzide, clindamycin, and Augmentin. REVIEW OF SYSTEMS: The patient is seen and examined at the bedside in her room having fever, chills,and sore throat. No nausea, vomiting, or diarrhea. No hematuria or hematochezia. No chest pain. No palpitations. No headache and no dizziness. No rational pleuritis. No arthralgia or myalgia. PHYSICAL EXAMINATION VITAL SIGNS: T-max of 100.3, pulse of 141, respiratory rate of 20 and blood pressure 97/49. HEENT: Head is normocephalic and atraumatic. Eyes, PERRLA. Extraocular muscles are intact. Conjunctivae are clear. Nose is patent. Mucous membranes are moist. NECK: Supple. No carotid bruits and no thyromegaly. CHEST: Bilaterally symmetrical. HEART: S1 and S2 positive. LUNGS: Clear to auscultation. ABDOMEN: Soft. Bowel sounds are present. No organomegaly. EXTREMITIES: No edema. No cyanosis. NEUROLOGIC: The patient is awake and alert. Moving all 4 extremities. No focal neurological deficit. LABORATORY DATA: White blood cells of 19.7, hemoglobin of 13.4, hematocrit of 37.7, and platelets of 356. Sodium of 131, potassium of 4.7, BUN of 9, creatinine of 0.7, and glucose of 115. ASSESSMENT AND PLAN: Ms. Praveen Beverly is a 52-year-old lady with the leucocytosis, hyponatremia, hyperglycemia, and admitted for sepsis. Infectious diseases consult called. Started on antibiotics. Felling fatigue. Tonsillitis and exudate, rule out viral syndrome. History of hypercholesterolemia, and hypertension. Gastrointestinal and deep venous thrombosis prophylaxis. Repeat labs. Michelle Gilmore MD
[2017-07-09] MEDS: Vancomycin 1gm in NS 250ml 1 GM/250 ML BAG IVPB SCH ×2 (09:52→20:30)
[2017-07-09] MEDS: Sodium Chloride 0.9% 1,000 ML IV SCH (12:21)
--- NOTE | 2017-07-09 13:50 | CP.PCM.CON ---
History of Present Illness - History of Present Illness History of Present Illness: 52 year old female with PMH of HTN was recently admitted in [facility] for exudative tonsillitis (bilateral, but worse on the left). She was started on antibiotics then and felt better and was discharged on Clindamycin. A few days later, her throat became more painful, especially on the right side, as well as fever and chills. She is also complaining of body aches. No headache or dizziness, no earache or discharge, no rhinorrhea, no nausea or vomiting, no chest pain, no SOB, no cough, no abdominal pain, no diarrhea, no dysuria. Infectious Diseases consult is requested to further evaluate and manage. Review of Systems - Review of Systems All systems: reviewed and no additional remarkable complaints except (as per HPI ) Past Patient History - Infectious Disease Hx of Infectious Diseases: None - Past Social History Smoking Status: Never Smoked - CARDIAC Hx Cardiac Disorders: Yes Hx Hypercholesterolemia: Yes Hx Hypertension: Yes - PULMONARY Hx Respiratory Disorders: No - HEENT Hx HEENT Problems: Yes (tonsillitis) - RENAL Hx Chronic Kidney Disease: No - ENDOCRINE/METABOLIC Hx Endocrine Disorders: No - HEMATOLOGICAL/ONCOLOGICAL Hx Blood Disorders: No - INTEGUMENTARY Hx Dermatological Problems: No - MUSCULOSKELETAL/RHEUMATOLOGICAL Hx Falls: No - GASTROINTESTINAL Hx Gastrointestinal Disorders: No - GENITOURINARY/GYNECOLOGICAL Hx Genitourinary Disorders: No - PSYCHIATRIC Hx Psychophysiologic Disorder: No Hx Substance Use: No - SURGICAL HISTORY Hx Surgeries: Yes (c section x2) - ANESTHESIA Hx Anesthesia: Yes Hx Anesthesia Reactions: No Meds Allergies/Adverse Reactions: Allergies Allergy/AdvReac Type Severity Reaction Status Date / Time No Known Allergies Allergy Verified 07/02/17 09:43 - Medications Medications: Current Medications Sodium Chloride (Sodium Chloride 0.9%) 1,000 mls @ 250 mls/hr IV .Q4H [facility] Last Admin: 07/08/17 14:01 Dose: 250 mls/hr Physical Exam - Constitutional Appears: Non-toxic, No Acute Distress - Head Exam Head Exam: NORMAL INSPECTION - ENT Exam Additional comments: bilaterall tonsillar swelling and erythema, right greater than left, with some exudate noted on the right - Neck Exam Neck exam: Negative for: Lymphadenopathy, Meningismus - Respiratory Exam Respiratory Exam: Decreased Breath Sounds - Cardiovascular Exam Cardiovascular Exam: +S1, +S2 - GI/Abdominal Exam GI & Abdominal Exam: Soft. absent: Tenderness Results - Vital Signs Recent Vital Signs: Last Vital Signs Temp 99.2 F 07/08/17 18:48 Pulse 100 H 07/08/17 18:48 Resp 18 07/08/17 18:48 BP 111/68 07/08/17 18:48 Pulse Ox 100 07/08/17 15:55 - Labs Result Diagrams: 07/08/17 12:35 07/08/17 12:35 Labs: Laboratory Results - last 24 hr 07/08/17 16:10 pO2 44 VBG pH 7.36 VBG pCO2 47.0 VBG HCO3 26.6 VBG Total CO2 28.0 VBG O2 Sat (Calc) 84.4 H VBG Base Excess 0.6 VBG Potassium 3.9 Sodium 135.0 Chloride 100.0 Glucose 195 H Lactate 1.8 FiO2 21.0 Venous Blood Potassium 3.9 Assessment & Plan - Assessment and Plan (Free Text) Plan: Assessment Consider sepsis due to tonsillopharyngitis, R/O abscess formation , R/O Lemmiere 's syndrome, R/O infectious mononucleosis HTN Plan Will repeat CT neck with and without IV contrast to check for abscess or venous thrombosis; started patient on Vancomycin and Zosyn follow up Heterophile antibody test will monitor clinical response
--- NOTE | 2017-07-09 14:00 | CT ---
PROCEDURE: CT NECK WITH CONTRAST HISTORY: rule out abscess COMPARISON: None TECHNIQUE: CT of the neck with intravenous contrast. Coronal and sagittal reformats generated. Intravenous contrast dose: 100 cc of Omni 350 Radiation dose: DLP 400 mGy-cm This CT exam was performed using one or more of the following dose reduction techniques: Automated exposure control, adjustment of the mA and/or kV according to patient size, and/or use of iterative reconstruction technique. FINDINGS: NASOPHARYNX: Mild swelling of the adenoids unchanged SUPRAHYOID NECK: The swelling of the left palatine tonsil seen previously has resolved. There is no abscess formation. INFRAHYOID NECK: Unremarkable larynx, hypopharynx, and supraglottic space. Vocal cords intact. MASS: None. GLANDS: Parotid and submandibular glands unremarkable. Normal size thyroid gland, without nodule. LYMPH NODES: Mild cervical adenopathy unchanged CERVICAL SPINE: No fracture or focal lesion. VASCULAR STRUCTURES: Unremarkable. OTHER FINDINGS: None. IMPRESSION: Improved swelling of left tonsil. Mild cervical adenopathy unchanged
[2017-07-09] MEDS: HYDROmorphone 0.5 mg/0.5 ml ISec IVP PRN (18:12)
[2017-07-09] MEDS: Piperacillin/Tazobact 3.375 gm 100 ML IVPB SCH ×2 (18:12→23:38)
--- NOTE | 2017-07-09 23:09 | CP.PCM.PN ---
Subjective - Date & Time of Evaluation Date of Evaluation: 07/09/17 Time of Evaluation: 09:30 - Subjective Subjective: 52 year old female with PMH of HTN was recently admitted in [facility] for exudative tonsillitis (bilateral, but worse on the left). She was started on antibiotics then and felt better and was discharged on Clindamycin. A few days later, her throat became more painful, especially on the right side, as well as fever and chills. She is also complaining of body aches. No headache or dizziness, no earache or discharge, no rhinorrhea, no nausea or vomiting, no chest pain, no SOB, no cough, no abdominal pain, no diarrhea, no dysuria. Infectious Diseases consult is requested to further evaluate and manage. Objective - Vital Signs/Intake and Output Vital Signs (last 24 hours): Temp Pulse Resp BP Pulse Ox 101.7 F H 115 H 20 127/85 98 07/09/17 21:49 07/09/17 06:00 07/09/17 06:00 07/09/17 06:00 07/09/17 06:00 Intake and Output: 07/09/17 07/10/17 18:59 06:59 Intake Total 1260 380 Balance 1260 380 - Medications Medications: Current Medications Atorvastatin Calcium (Lipitor) 80 mg PO DIN [facility] Last Admin: 07/09/17 18:12 Dose: 80 mg Hydrochlorothiazide (Microzide) 12.5 mg PO DAILY [facility] Last Admin: 07/09/17 09:52 Dose: 12.5 mg Hydromorphone HCl (Dilaudid) 0.5 mg IVP Q6H PRN PRN Reason: Pain, moderate (4-7) Last Admin: 07/09/17 18:12 Dose: 0.5 mg Sodium Chloride (Sodium Chloride 0.9%) 1,000 mls @ 100 mls/hr IV .Q10H [facility] Last Admin: 07/09/17 12:21 Dose: 100 mls/hr Vancomycin HCl (Vancomycin 1gm) 1 gm in 250 mls @ 167 mls/hr IVPB Q12H [facility] PRN Reason: Protocol Last Admin: 07/09/17 20:30 Dose: 167 mls/hr Piperacillin Sod/Tazobactam Sod (Zosyn 3.375 In Ns 100ml) 100 mls @ 200 mls/hr IVPB Q6 [facility] PRN Reason: Protocol Stop: 07/16/17 18:01 Last Admin: 07/09/17 18:12 Dose: 200 mls/hr - Labs Labs: PT 12.0 Seconds (9.9-11.8) H 07/08/17 12:35 INR 1.11 (0.93-1.08) H 07/08/17 12:35 APTT 34.5 Seconds (23.7-30.8) H 07/08/17 12:35 - Constitutional Appears: Well - Head Exam Head Exam: ATRAUMATIC, NORMAL INSPECTION, NORMOCEPHALIC - Eye Exam Eye Exam: EOMI, Normal appearance, PERRL Pupil Exam: NORMAL ACCOMODATION, PERRL - ENT Exam ENT Exam: Mucous Membranes Moist, Normal Exam - Neck Exam Neck Exam: Full ROM, Normal Inspection. absent: Lymphadenopathy - Respiratory Exam Respiratory Exam: Clear to Ausculation Bilateral, NORMAL BREATHING PATTERN - Cardiovascular Exam Cardiovascular Exam: REGULAR RHYTHM, +S1, +S2. absent: Murmur - GI/Abdominal Exam GI & Abdominal Exam: Soft, Normal Bowel Sounds. absent: Tenderness - Rectal Exam Rectal Exam: NORMAL INSPECTION - Exam Exam: Circumcision, NORMAL INSPECTION External exam: NORMAL EXTERNAL EXAM Speculum exam: NORMAL SPECULUM EXAM Bimanual exam: NORMAL BIMANUAL EXAM - Extremities Exam Extremities Exam: Full ROM, Normal Capillary Refill, Normal Inspection. absent : Joint Swelling, Pedal Edema - Back Exam Back Exam: NORMAL INSPECTION - Neurological Exam Neurological Exam: Alert, Awake, CN II-XII Intact, Normal Gait, Oriented x3 - Psychiatric Exam Psychiatric exam: Normal Affect, Normal Mood - Skin Skin Exam: Dry, Intact, Normal Color, Warm Assessment and Plan - Assessment and Plan (Free Text) Assessment: Consider sepsis due to tonsillopharyngitis, R/O abscess formation , R/O Lemmiere 's syndrome, R/O infectious mononucleosis HTN Plan CT neck with and without IV contrast to check for abscess or venous thrombosis ; started patient on Vancomycin and Zosyn follow up Heterophile antibody test will monitor clinical response, was sitting onthe bed side ,d/d , all qs answered , pain management done
--- NOTE | 2017-07-10 00:40 | CP.PCM.PN ---
Subjective - Date & Time of Evaluation Date of Evaluation: 07/10/17 Time of Evaluation: 00:39 - Subjective Subjective: S:Patient seen at bedside. Has Temp: 100.6* F. Has some soreness in mouth. No other complaints. LFT's up. Pertinent medical record was reviewed. O: Last Vital Signs 3 Temp 100.6 F H 07/10/17 00:54 Pulse 114 H 07/10/17 00:30 Resp 20 07/10/17 00:30 BP 122/86 07/10/17 00:30 Pulse Ox 97 07/10/17 00:30 Awake, alert, not in distress. LUNGS:Normal breathing pattern. A:Fever. P:Tylenol 325 mg PO stat. Objective - Vital Signs/Intake and Output Vital Signs (last 24 hours): Temp Pulse Resp BP Pulse Ox 99.3 F 115 H 20 127/85 98 07/09/17 22:49 07/09/17 06:00 07/09/17 06:00 07/09/17 06:00 07/09/17 06:00 - Medications Medications: Current Medications Acetaminophen (Tylenol 325mg Tab) 325 mg PO STAT [facility] Stop: 07/10/17 00:39 Atorvastatin Calcium (Lipitor) 80 mg PO DIN [facility] Last Admin: 07/09/17 18:12 Dose: 80 mg Famotidine (Pepcid) 40 mg PO HS [facility] Hydrochlorothiazide (Microzide) 12.5 mg PO DAILY [facility] Last Admin: 07/09/17 09:52 Dose: 12.5 mg Hydromorphone HCl (Dilaudid) 0.5 mg IVP Q6H PRN PRN Reason: Pain, moderate (4-7) Last Admin: 07/09/17 18:12 Dose: 0.5 mg Sodium Chloride (Sodium Chloride 0.9%) 1,000 mls @ 100 mls/hr IV .Q10H [facility] Last Admin: 07/09/17 12:21 Dose: 100 mls/hr Vancomycin HCl (Vancomycin 1gm) 1 gm in 250 mls @ 167 mls/hr IVPB Q12H [facility] PRN Reason: Protocol Last Admin: 07/09/17 20:30 Dose: 167 mls/hr Piperacillin Sod/Tazobactam Sod (Zosyn 3.375 In Ns 100ml) 100 mls @ 200 mls/hr IVPB Q6 [facility] PRN Reason: Protocol Stop: 07/16/17 18:01 Last Admin: 07/09/17 23:38 Dose: 200 mls/hr - Labs Labs: PT 12.0 Seconds (9.9-11.8) H 07/08/17 12:35 INR 1.11 (0.93-1.08) H 07/08/17 12:35 APTT 34.5 Seconds (23.7-30.8) H 07/08/17 12:35
[2017-07-10] MEDS: Sodium Chloride 0.9% 1,000 ML IV SCH ×3 (02:17→16:05)
[2017-07-10] MEDS: Piperacillin/Tazobact 3.375 gm 100 ML IVPB SCH ×3 (05:12→18:00)
[2017-07-10] MEDS: Vancomycin 1gm in NS 250ml 1 GM/250 ML BAG IVPB SCH ×2 (10:04→21:41)
[2017-07-10] MEDS: HYDROmorphone 0.5 mg/0.5 ml ISec IVP PRN ×2 (10:05→17:59)
--- NOTE | 2017-07-10 14:19 | CP.PCM.PN ---
Subjective - Date & Time of Evaluation Date of Evaluation: 07/10/17 Time of Evaluation: 14:18 - Subjective Subjective: pt needs angiocath inserted . Objective - Vital Signs/Intake and Output Vital Signs (last 24 hours): Temp Pulse Resp BP Pulse Ox 99.0 F 104 H 18 130/82 100 07/10/17 06:00 07/10/17 06:00 07/10/17 06:00 07/10/17 06:00 07/10/17 06:00 Intake and Output: 07/10/17 07/10/17 06:59 18:59 Intake Total 2260 Balance 2260 - Medications Medications: Current Medications Atorvastatin Calcium (Lipitor) 80 mg PO DIN [facility] Last Admin: 07/09/17 18:12 Dose: 80 mg Famotidine (Pepcid) 40 mg PO HS [facility] Hydrochlorothiazide (Microzide) 12.5 mg PO DAILY [facility] Last Admin: 07/10/17 10:05 Dose: 12.5 mg Hydromorphone HCl (Dilaudid) 0.5 mg IVP Q6H PRN PRN Reason: Pain, moderate (4-7) Last Admin: 07/10/17 10:05 Dose: 0.5 mg Sodium Chloride (Sodium Chloride 0.9%) 1,000 mls @ 100 mls/hr IV .Q10H [facility] Last Admin: 07/10/17 05:44 Dose: Not Given Vancomycin HCl (Vancomycin 1gm) 1 gm in 250 mls @ 167 mls/hr IVPB Q12H [facility] PRN Reason: Protocol Last Admin: 07/10/17 10:04 Dose: 167 mls/hr Piperacillin Sod/Tazobactam Sod (Zosyn 3.375 In Ns 100ml) 100 mls @ 200 mls/hr IVPB Q6 [facility] PRN Reason: Protocol Stop: 07/16/17 18:01 Last Admin: 07/10/17 12:17 Dose: 200 mls/hr - Labs Labs: PT 12.0 Seconds (9.9-11.8) H 07/08/17 12:35 INR 1.11 (0.93-1.08) H 07/08/17 12:35 APTT 34.5 Seconds (23.7-30.8) H 07/08/17 12:35 Assessment and Plan - Assessment and Plan (Free Text) Assessment: 22 guage angiocath inserted in rt forearm.
--- NOTE | 2017-07-10 18:36 | CP.PCM.PN ---
Subjective - Date & Time of Evaluation Date of Evaluation: 07/10/17 Time of Evaluation: 10:35 - Subjective Subjective: Comfortable, not in distress, less throat pain, still with fevers yesterday. Objective - Vital Signs/Intake and Output Vital Signs (last 24 hours): Temp Pulse Resp BP Pulse Ox 98.9 F 113 H 20 130/81 99 07/10/17 16:18 07/10/17 16:18 07/10/17 16:18 07/10/17 16:18 07/10/17 16:18 Intake and Output: 07/10/17 07/10/17 06:59 18:59 Intake Total 2260 480 Balance 2260 480 - Medications Medications: Current Medications Atorvastatin Calcium (Lipitor) 80 mg PO DIN [facility] Last Admin: 07/10/17 17:59 Dose: 80 mg Famotidine (Pepcid) 40 mg PO HS [facility] Hydrochlorothiazide (Microzide) 12.5 mg PO DAILY [facility] Last Admin: 07/10/17 10:05 Dose: 12.5 mg Hydromorphone HCl (Dilaudid) 0.5 mg IVP Q6H PRN PRN Reason: Pain, moderate (4-7) Last Admin: 07/10/17 17:59 Dose: 0.5 mg Sodium Chloride (Sodium Chloride 0.9%) 1,000 mls @ 100 mls/hr IV .Q10H [facility] Last Admin: 07/10/17 16:05 Dose: 100 mls/hr Vancomycin HCl (Vancomycin 1gm) 1 gm in 250 mls @ 167 mls/hr IVPB Q12H [facility] PRN Reason: Protocol Last Admin: 07/10/17 10:04 Dose: 167 mls/hr Piperacillin Sod/Tazobactam Sod (Zosyn 3.375 In Ns 100ml) 100 mls @ 200 mls/hr IVPB Q6 [facility] PRN Reason: Protocol Stop: 07/16/17 18:01 Last Admin: 07/10/17 18:00 Dose: 200 mls/hr - Labs Labs: PT 12.0 Seconds (9.9-11.8) H 07/08/17 12:35 INR 1.11 (0.93-1.08) H 07/08/17 12:35 APTT 34.5 Seconds (23.7-30.8) H 07/08/17 12:35 - Constitutional Appears: Non-toxic - Head Exam Head Exam: NORMAL INSPECTION - ENT Exam ENT Exam: Mucous Membranes Moist - Neck Exam Neck Exam: absent: Lymphadenopathy, Meningismus - Respiratory Exam Respiratory Exam: Decreased Breath Sounds - Cardiovascular Exam Cardiovascular Exam: +S1, +S2 - GI/Abdominal Exam GI & Abdominal Exam: Soft. absent: Tenderness Assessment and Plan - Assessment and Plan (Free Text) Plan: Assessment Consider sepsis due to tonsillopharyngitis - no evidence of abscess formation , venous thrombophlebitis on CT neck; hetrophile antibody is negative for infectious mononucleosis HTN Plan reviewed CT neck with and without IV contrast which does not show abscess or venous thrombosis - also shows improvement in the pharyngitis; continue Vancomycin and Zosyn day 2 Heterophile antibody test is negative; follow up EBV and CMV serologies will continue to monitor clinical response
[2017-07-10 19:11] LABS: CYTOMEGALOVIRUS AB (IGM) <30.00 AU/mL
[2017-07-10] MEDS: Benzocaine/Menthol (Cepacol) Lozenge MT PRN (21:46)
--- NOTE | 2017-07-11 01:50 | CP.PCM.PN ---
Subjective - Date & Time of Evaluation Date of Evaluation: 07/10/17 Time of Evaluation: 11:30 - Subjective Subjective: Comfortable, not in distress, less throat pain, still with fevers yesterday.want to go home , ID and ent is on the case Objective - Vital Signs/Intake and Output Vital Signs (last 24 hours): Temp Pulse Resp BP Pulse Ox 99.5 F 113 H 20 130/81 99 07/10/17 22:09 07/10/17 16:18 07/10/17 16:18 07/10/17 16:18 07/10/17 16:18 Intake and Output: 07/10/17 07/11/17 18:59 06:59 Intake Total 480 360 Balance 480 360 - Medications Medications: Current Medications Atorvastatin Calcium (Lipitor) 80 mg PO DIN [facility] Last Admin: 07/10/17 17:59 Dose: 80 mg Benzocaine/Menthol (Cepacol Sore Throat) 1 [place] MT Q2H PRN PRN Reason: Sore Throat Last Admin: 07/10/17 21:46 Dose: 1 [place] Famotidine (Pepcid) 40 mg PO HS [facility] Last Admin: 07/10/17 22:00 Dose: Not Given Hydrochlorothiazide (Microzide) 12.5 mg PO DAILY [facility] Last Admin: 07/10/17 10:05 Dose: 12.5 mg Hydromorphone HCl (Dilaudid) 0.5 mg IVP Q6H PRN PRN Reason: Pain, moderate (4-7) Last Admin: 07/10/17 17:59 Dose: 0.5 mg Sodium Chloride (Sodium Chloride 0.9%) 1,000 mls @ 100 mls/hr IV .Q10H [facility] Last Admin: 07/10/17 16:05 Dose: 100 mls/hr Vancomycin HCl (Vancomycin 1gm) 1 gm in 250 mls @ 167 mls/hr IVPB Q12H [facility] PRN Reason: Protocol Last Admin: 07/10/17 21:41 Dose: 167 mls/hr Piperacillin Sod/Tazobactam Sod (Zosyn 3.375 In Ns 100ml) 100 mls @ 200 mls/hr IVPB Q6 [facility] PRN Reason: Protocol Stop: 07/16/17 18:01 Last Admin: 07/10/17 18:00 Dose: 200 mls/hr - Labs Labs: PT 12.0 Seconds (9.9-11.8) H 07/08/17 12:35 INR 1.11 (0.93-1.08) H 07/08/17 12:35 APTT 34.5 Seconds (23.7-30.8) H 07/08/17 12:35 - Constitutional Appears: Well - Head Exam Head Exam: ATRAUMATIC, NORMAL INSPECTION, NORMOCEPHALIC - Eye Exam Eye Exam: EOMI, Normal appearance, PERRL Pupil Exam: NORMAL ACCOMODATION, PERRL - ENT Exam ENT Exam: Mucous Membranes Moist, Normal Exam - Neck Exam Neck Exam: Full ROM, Normal Inspection. absent: Lymphadenopathy - Respiratory Exam Respiratory Exam: Clear to Ausculation Bilateral, NORMAL BREATHING PATTERN - Cardiovascular Exam Cardiovascular Exam: REGULAR RHYTHM, +S1, +S2. absent: Murmur - GI/Abdominal Exam GI & Abdominal Exam: Soft, Normal Bowel Sounds. absent: Tenderness - Rectal Exam Rectal Exam: NORMAL INSPECTION - Exam Exam: Circumcision, NORMAL INSPECTION External exam: NORMAL EXTERNAL EXAM Speculum exam: NORMAL SPECULUM EXAM Bimanual exam: NORMAL BIMANUAL EXAM - Extremities Exam Extremities Exam: Full ROM, Normal Capillary Refill, Normal Inspection. absent : Joint Swelling, Pedal Edema - Back Exam Back Exam: NORMAL INSPECTION - Neurological Exam Neurological Exam: Alert, Awake, CN II-XII Intact, Normal Gait, Oriented x3 - Psychiatric Exam Psychiatric exam: Normal Affect, Normal Mood - Skin Skin Exam: Dry, Intact, Normal Color, Warm
[2017-07-11] MEDS: Sodium Chloride 0.9% 1,000 ML IV SCH ×3 (02:19→19:01)
[2017-07-11] MEDS: Benzocaine/Menthol (Cepacol) Lozenge MT PRN ×4 (02:19→20:59)
[2017-07-11] MEDS: Piperacillin/Tazobact 3.375 gm 100 ML IVPB SCH ×4 (05:42→17:12)
[2017-07-11] MEDS: Vancomycin 1gm in NS 250ml 1 GM/250 ML BAG IVPB SCH ×2 (10:48→20:52)
[2017-07-11] MEDS: HYDROmorphone 0.5 mg/0.5 ml ISec IVP PRN (12:41)
[2017-07-11] MEDS: Nystatin 100,000 Units/ml Oral Susp 5 ml UD PO SCH ×2 (17:21→20:59)
--- NOTE | 2017-07-11 17:47 | CP.PCM.PN ---
Subjective - Date & Time of Evaluation Date of Evaluation: 07/11/17 Time of Evaluation: 10:00 - Subjective Subjective: Still with throat pain but better, no fevers this morning, not in distress. Objective - Vital Signs/Intake and Output Vital Signs (last 24 hours): Temp Pulse Resp BP Pulse Ox 98.3 F 96 H 19 138/87 97 07/11/17 17:08 07/11/17 17:08 07/11/17 17:08 07/11/17 17:08 07/11/17 17:08 Intake and Output: 07/11/17 07/11/17 06:59 18:59 Intake Total 480 2400 Balance 480 2400 - Medications Medications: Current Medications Acetaminophen (Tylenol 325mg Tab) 650 mg PO Q6H PRN PRN Reason: Pain, Mild (1-3) Atorvastatin Calcium (Lipitor) 80 mg PO DIN [facility] Last Admin: 07/11/17 17:12 Dose: 80 mg Benzocaine/Menthol (Cepacol Sore Throat) 1 [place] MT Q2H PRN PRN Reason: Sore Throat Last Admin: 07/11/17 10:48 Dose: 1 [place] Famotidine (Pepcid) 40 mg PO HS [facility] Last Admin: 07/10/17 22:00 Dose: Not Given Hydrochlorothiazide (Microzide) 12.5 mg PO DAILY [facility] Last Admin: 07/11/17 10:48 Dose: 12.5 mg Hydromorphone HCl (Dilaudid) 0.5 mg IVP Q6H PRN PRN Reason: Pain, moderate (4-7) Last Admin: 07/11/17 12:41 Dose: 0.5 mg Sodium Chloride (Sodium Chloride 0.9%) 1,000 mls @ 100 mls/hr IV .Q10H [facility] Last Admin: 07/11/17 12:10 Dose: Not Given Vancomycin HCl (Vancomycin 1gm) 1 gm in 250 mls @ 167 mls/hr IVPB Q12H [facility] PRN Reason: Protocol Last Admin: 07/11/17 10:48 Dose: 167 mls/hr Piperacillin Sod/Tazobactam Sod (Zosyn 3.375 In Ns 100ml) 100 mls @ 200 mls/hr IVPB Q6 [facility] PRN Reason: Protocol Stop: 07/16/17 18:01 Last Admin: 07/11/17 17:12 Dose: 200 mls/hr Lidocaine HCl (Lidocaine 2% Viscous) 15 ml PO AC [facility] Last Admin: 07/11/17 17:12 Dose: 15 ml Nystatin (Nystatin Oral Susp) 5 ml PO QID [facility] Last Admin: 07/11/17 17:21 Dose: 5 ml - Labs Labs: PT 12.0 Seconds (9.9-11.8) H 07/08/17 12:35 INR 1.11 (0.93-1.08) H 07/08/17 12:35 APTT 34.5 Seconds (23.7-30.8) H 07/08/17 12:35 - Constitutional Appears: Non-toxic, No Acute Distress - Head Exam Head Exam: NORMAL INSPECTION - ENT Exam ENT Exam: Mucous Membranes Moist Additional comments: improving swelling of the right tonsil - Neck Exam Neck Exam: absent: Lymphadenopathy, Meningismus Assessment and Plan - Assessment and Plan (Free Text) Plan: Assessment Consider sepsis due to tonsillopharyngitis - no evidence of abscess formation , venous thrombophlebitis on CT neck; hetrophile antibody is negative for infectious mononucleosis; slowly improving HTN Plan reviewed CT neck with and without IV contrast which does not show abscess or venous thrombosis - also shows improvement in the pharyngitis; continue Vancomycin and Zosyn day 3 Heterophile antibody test is negative; follow up EBV and CMV serologies will continue to monitor clinical response
[2017-07-12] MEDS: Piperacillin/Tazobact 3.375 gm 100 ML IVPB SCH ×4 (00:17→17:33)
[2017-07-12 00:42] VITALS: RESP 20
[2017-07-12] MEDS: Sodium Chloride 0.9% 1,000 ML IV SCH ×2 (05:07→17:05)
--- NOTE | 2017-07-12 05:15 | CON ---
DATE: 07/11/2017 EAR, NOSE AND THROAT CONSULTATION REASON FOR CONSULTATION: Pharyngitis. CONSULTING PHYSICIAN: Dr. Ulices Mccoy. REFERRING PHYSICIAN: Dr. Michelle Gilmore. HISTORY OF PRESENT ILLNESS: This is a 52-year-old female with significant past medical history who presents with sore throat that has been ongoing for about 3 weeks now. The patient initially presented to this hospital about a week ago and was admitted for tonsillitis, was treated with IV antibiotics and discharged home on clindamycin and Augmentin. After being at home for a few days, the patient reported feeling worse with fever, increasing sore throat and odynophagia, therefore, she came back to [facility] and was again admitted 3 days ago with presumed tonsillitis. She had a soft tissue of her neck at that time, which demonstrated swelling of the palatine tonsil and mild cervical adenopathy. Upon admission, the patient had a white blood cell count of 19.7 and had a temperature max of 102.8. She was started on vancomycin and Zosyn. The last fever that she has had was more than 24 hours ago on 07/10/2017. T-max of 100.6 since she has now been afebrile for 24 hours. Upon examination, the patient still reports sore throat with odynophagia when she is eating liquids and solids. The patient reports having spent 3 hours eating today because of inability to tolerate food because of pain. She denies any further fever or chills. Denies any postnasal drip, rhinorrhea. However, she does feel like the back of her tongue is slightly swollen. The patient is very anxious and worried about her condition at this point. However, denies other ear, nose, and throat complaints. PAST MEDICAL HISTORY: Hypertension and hypercholesterolemia. PAST SURGICAL HISTORY: . No head or neck surgeries. ALLERGIES: SHE HAS NO KNOWN DRUG ALLERGIES. HOME MEDICATIONS: Include Crestor, hydrochlorothiazide, Augmentin, and clindamycin. SOCIAL HISTORY: Denies smoking, alcohol, or drug abuse. REVIEW OF SYSTEMS: Negative as per HPI. PHYSICAL EXAMINATION GENERAL: Awake, alert, oriented x3, no acute distress, lying comfortably. VITAL SIGNS: Right now, temperature 98.8, pulse rate 102, blood pressure 129/89, respiratory rate 20, O2 sat 99% on room air. EARS: External auricles unremarkable. Canals are clear. Tympanic membranes intact, no fluids, no infection. EYES: Extraocular movements intact. NOSE: Patent bilaterally, no discharge, no epistaxis. ORAL CAVITY: Oropharynx, lips unremarkable. Tongue mobile and midline. Oral mucosa moist. Right tonsil 2+, left tonsil is not enlarged. Right tonsil has tonsilloliths and exudates, however, improved from exam last week. There is slight pharyngeal erythema. Uvula is midline. Palate is symmetrical, NECK: Supple, nontender, shotty lymphadenopathy, trachea midline, no thyromegaly. RESPIRATIONS: Unlabored. PROCEDURE: Direct fiberoptic laryngoscopy. DESCRIPTION OF PROCEDURE: Upon obtaining verbal consent, the direct fiberoptic laryngoscope was inserted into the patient's nasal cavity on the left side and advanced towards the nasopharynx. A septal deviation was noted towards the left side. The nasal mucosa appeared boggy. The eustachian tubes are patent bilaterally. The posterior pharyngeal wall demonstrated white streaks and erythema. The uvula was normal. The base of tongue demonstrated some fullness with whitish exudates indicating oral thrush. The epiglottis was normal in appearance. The pyriform sinuses demonstrated no masses. The postcricoid area demonstrated some mild edema and erythema, which could be consistent with reflux. The vocal cords approximated normally upon phonation and demonstrated no edema, erythema or masses. The direct laryngoscope was removed under direct visualization. The patient tolerated the procedure well. LABORATORY DATA: Her white count on 07/08/2017 was 19.7 with hemoglobin 13.4, hematocrit 39.7, platelets 356. She has mono screen, which is negative. She has a CMV IgG antibody, which is elevated, but CMV IgM antibody, which is negative. On 07/02/2017, she had strep throat culture,which was negative and her blood cultures from 07/02/2017 and 07/08/2017 have been negative to date. She also has a urine culture from 07/08/2017, which shows no growth. IMAGING: She has a chest x-ray from 07/08/2017, which is normal. She also has soft tissue neck from 07/09/2017, which demonstrates no acute pathology, no evidence of abscess, but does show slightly hypertrophied lingual tonsil. In addition upon my review, there is a slight fullness to the base of the tongue. ASSESSMENT AND PLAN: This is a 52-year-old female who has been admitted for pharyngitis, currently being treated with IV antibiotics, vancomycin and Zosyn. She has been afebrile for 24 hours. Upon my direct laryngoscopy exam, I did see evidence of oral thrush at the base of the tongue. I also saw some white streaks in the posterior pharynx, which could be related to the oral thrush, but could also consider esophagitis. At this point, continue IV antibiotics per Infectious Disease. I have added nystatin swish and spit and I have also added viscous lidocaine for odynophagia. If these additional remedies do not improve the patient's pain and clinical condition, could consider testing for HSV or further workup for esophagitis. We will continue to monitor for improvement on current treatment regimen. Thank you for allowing us to participate in the patient's care. Ulices Mccoy DO
[2017-07-12 06:44] LABS: CHOLESTEROL 140 mg/dL (130-200)
--- NOTE | 2017-07-12 09:10 | PN ---
DATE: The patient is 52 years old female. SUBJECTIVE: The patient seen and examined at the bedside, looking comfortable. Still having neck pain and swallowing problem. No nausea, vomiting or diarrhea. No hematuria or hematochezia. No fever. No headache. No dizziness. PHYSICAL EXAMINATION VITAL SIGNS: Temperature 98.2, pulse 96, blood pressure 138/87, respiratory rate 19. HEENT: Head; normocephalic and atraumatic. Eyes; PERRLA. Extraocular muscles intact. Conjunctivae clear. Nose is patent. Mucous membranes are moist. NECK: Supple. No carotid bruits or thyromegaly. CHEST: Bilaterally symmetrical. HEART: S1 and S2 positive. LUNGS: Clear to auscultation. ABDOMEN: Soft. Bowel sounds are positive. No organomegaly. EXTREMITIES: No edema. No cyanosis. NEUROLOGIC: The patient is awake and alert. Follows simple commands. MEDICATIONS: Cepacol, Dilaudid, lidocaine, Lipitor, hydrochlorothiazide, nystatin, Pepcid, MS, Tylenol, vancomycin. LABORATORY DATA: We do not have recent labs today, but reviewed her old labs. ASSESSMENT AND PLAN: The patient is a 52-year-old lady with leukocytosis, hyponatremia, hypochloremia, hyperglycemia, abnormal liver function test, failed outpatient treatment, actually she did three times course of antibiotics. According to ID, had sepsis due to tonsillopharyngitis. No evidence of abscess formation, venous thrombophlebitis on CT of the neck. Heterophile antibody is negative for infectious mononucleosis, slowly improving, hypertension. Reviewed CT of the neck with and without IV contrast, it does not show abscess or venous thrombosis. Also, shows improvement in pharyngitis. Continue vancomycin and Zosyn, day #3. We have to follow EBV and CMV serology. Length of time discussion done with the patient in the presence of patient's nurse, Issa. ID notes reviewed, patient is getting her pain medications. Repeat labs. ENT consult called, but nobody saw the patient. We will followup. Michelle Gilmore MD
[2017-07-12] MEDS: Vancomycin 1gm in NS 250ml 1 GM/250 ML BAG IVPB SCH ×2 (11:06→22:16)
[2017-07-12] MEDS: Nystatin 100,000 Units/ml Oral Susp 5 ml UD PO SCH ×4 (11:13→22:16)
[2017-07-12 11:47] LABS: BASO # 0.02 K/mm3 (0.0-2.0); BASO % 0.2 % (0.0-3.0); EOS # 0.2 (0.0-0.7); EOS % 1.8 % (1.5-5.0); GRAN # 8.41 (1.4-6.5); GRAN % 75.8 % (50.0-68.0); HEMATOCRIT 34.8 % (36.0-48.0); LYMPH # 1.7 (1.2-3.4); MEAN CELL VOLUME 83.3 fl (80.0-105.0); MEAN CORPUSCULAR HEMOGLOBIN 27.8 pg (25.0-35.0); MEAN CORPUSCULAR HGB CONC 33.3 g/dl (31.0-37.0); MEAN PLATELET VOLUME 9.7 fl (7.0-11.0); MONO # 0.8 (0.1-0.6); MONO % 7.2 % (1.0-6.0); WHITE BLOOD COUNT 11.1 10^3/ul (4.5-11.0)
[2017-07-12 11:56] LABS: ALB/GLOB RATIO 0.9 (1.1-1.8); ALKALINE PHOSPHATASE 62 U/L (38-133); ALT/SGPT 45 U/L (7-56); AST/SGOT 27 U/L (15-39); BILIRUBIN,TOTAL 0.6 mg/dL (0.2-1.3); BLOOD UREA NITROGEN 7 mg/dL (7-21); CALCIUM 9.3 mg/dL (8.4-10.5); CARBON DIOXIDE 26 mmol/L (21-33); CHLORIDE 105 mmol/L (95-110); GFR AFRICAN-AMERICAN > 60; GLUCOSE,RANDOM 114 mg/dL (70-110); POTASSIUM 4.3 mmol/L (3.6-5.0); SODIUM 141 mmol/L (132-148); TOTAL PROTEIN 7.6 g/dL (5.8-8.3)
[2017-07-12 17:05] VITALS: BP 122/82; PULSE 93; TEMP 98.5; O2SAT 100
[2017-07-12] MEDS: Benzocaine/Menthol (Cepacol) Lozenge MT PRN (17:33)
--- NOTE | 2017-07-12 20:23 | CP.PCM.PN ---
Subjective - Date & Time of Evaluation Date of Evaluation: 07/12/17 Time of Evaluation: 10:10 - Subjective Subjective: Comfortable in bed, not in distress. Improved swallowing, significant improvement in throat pain, no fevers. Objective - Vital Signs/Intake and Output Vital Signs (last 24 hours): Temp Pulse Resp BP Pulse Ox 98.5 F 93 H 20 122/82 100 07/12/17 16:30 07/12/17 16:30 07/12/17 16:30 07/12/17 16:30 07/12/17 16:30 Intake and Output: 07/12/17 07/13/17 18:59 06:59 Intake Total 600 Balance 600 - Medications Medications: Current Medications Acetaminophen (Tylenol 325mg Tab) 650 mg PO Q6H PRN PRN Reason: Pain, Mild (1-3) Last Admin: 07/12/17 11:07 Dose: 650 mg Atorvastatin Calcium (Lipitor) 80 mg PO DIN [facility] Last Admin: 07/12/17 17:33 Dose: 80 mg Benzocaine/Menthol (Cepacol Sore Throat) 1 eugenia MT Q2H PRN PRN Reason: Sore Throat Last Admin: 07/12/17 17:33 Dose: 1 eugenia Famotidine (Pepcid) 40 mg PO HS NISH Last Admin: 07/11/17 20:59 Dose: 40 mg Hydrochlorothiazide (Microzide) 12.5 mg PO DAILY [facility] Last Admin: 07/12/17 11:07 Dose: 12.5 mg Hydromorphone HCl (Dilaudid) 0.5 mg IVP Q6H PRN PRN Reason: Pain, moderate (4-7) Last Admin: 07/11/17 12:41 Dose: 0.5 mg Sodium Chloride (Sodium Chloride 0.9%) 1,000 mls @ 100 mls/hr IV .Q10H [facility] Last Admin: 07/12/17 17:05 Dose: 100 mls/hr Vancomycin HCl (Vancomycin 1gm) 1 gm in 250 mls @ 167 mls/hr IVPB Q12H NISH PRN Reason: Protocol Last Admin: 07/12/17 11:06 Dose: 167 mls/hr Piperacillin Sod/Tazobactam Sod (Zosyn 3.375 In Ns 100ml) 100 mls @ 200 mls/hr IVPB Q6 NISH PRN Reason: Protocol Stop: 07/16/17 18:01 Last Admin: 07/12/17 17:33 Dose: 200 mls/hr Lidocaine HCl (Lidocaine 2% Viscous) 15 ml PO AC NISH Last Admin: 07/12/17 17:32 Dose: 15 ml Nystatin (Nystatin Oral Susp) 5 ml PO QID NISH Last Admin: 07/12/17 17:32 Dose: 5 ml - Labs Labs: 07/12/17 11:39 07/12/17 11:39 PT 12.0 Seconds (9.9-11.8) H 07/08/17 12:35 INR 1.11 (0.93-1.08) H 07/08/17 12:35 APTT 34.5 Seconds (23.7-30.8) H 07/08/17 12:35 - Constitutional Appears: Non-toxic, No Acute Distress - Head Exam Head Exam: NORMAL INSPECTION - ENT Exam ENT Exam: Mucous Membranes Moist Additional comments: improved swelling of right tonsil - Neck Exam Neck Exam: absent: Lymphadenopathy, Meningismus - Respiratory Exam Respiratory Exam: Decreased Breath Sounds - Cardiovascular Exam Cardiovascular Exam: +S1, +S2 - GI/Abdominal Exam GI & Abdominal Exam: Soft. absent: Tenderness Assessment and Plan - Assessment and Plan (Free Text) Plan: Assessment Consider sepsis due to tonsillopharyngitis with pharyngeal candidiasis - no evidence of abscess formation , venous thrombophlebitis on CT neck; hetrophile antibody is negative for infectious mononucleosis; slowly improving HTN Plan reviewed CT neck with and without IV contrast which does not show abscess or venous thrombosis - also shows improvement in the pharyngitis; continue Vancomycin and Zosyn day 4; will add Fluconazole Heterophile antibody test is negative; follow up EBV and CMV serologies follow up HIV test will continue to monitor clinical response
[2017-07-13] MEDS: Piperacillin/Tazobact 3.375 gm 100 ML IVPB SCH ×2 (01:00→06:15)
--- NOTE | 2017-07-13 01:16 | PN ---
DATE: The patient is 52 years old female. SUBJECTIVE: The patient seen and examined at the bedside, looking comfortable. Pain is getting better. No nausea or vomiting. No fever. No chills. No headache. No dizziness. PHYSICAL EXAMINATION: VITAL SIGNS: Temperature 98.5, pulse 93, blood pressure 122/82 and respiratory rate 20. HEENT: Head; normocephalic and atraumatic. Eyes; PERRLA. Extraocular muscles intact. Conjunctivae clear. Nose is patent. Mucous membranes are moist. NECK: Supple. No carotid bruits or thyromegaly. CHEST: Bilaterally symmetrical. HEART: S1 and S2, positive. LUNGS: Clear to auscultation. ABDOMEN: Soft. Bowel sounds are positive. No organomegaly. EXTREMITIES: No edema. No cyanosis. NEUROLOGIC: The patient is awake and alert. Moving all four extremities. No focal deficits. MEDICATIONS: Cepacol lozenges , Dilaudid, lidocaine, Lipitor, hydrochlorothiazide, nystatin powder and Pepcid. LABORATORY DATA: White blood cells 11.1, hemoglobin 11.6, hematocrit 34.8 and platelets 311. Sodium 141, potassium 4.3, BUN 7, creatinine 0.7 and glucose 114. ASSESSMENT AND PLAN: Ms. Praveen Beverly is 52 years old lady with leukocytosis, anemia, hyperglycemia came with sore throat, tonsillopharyngitis, no evidence of abscess. Heterophile antibodies negative for infectious mononucleosis, slowly improving, hypertension. Infectious disease is on the case, seen by ENT Dr. Ulices Mccoy. History of hypercholesterolemia, getting vancomycin and Zosyn. Laryngoscopy done by Dr. Ulices Mccoy, had oral thrush at the base of the tongue, white streaks in the posterior pharynx, which could be related to the oral thrush, but could consider esophagitis. Continue IV antibiotics. Dr. Mccoy added nystatin swish and spit and viscous lidocaine for odynophagia. If patient will continues symptoms as per Dr. Mccoy we have to work on esophagitis. Gastrointestinal and deep vein thrombosis prophylaxis. Repeat labs. We will follow. Michelle Gilmore MD MTDD
[2017-07-13 07:14] LABS: BLOOD UREA NITROGEN 7 mg/dL (7-21); CALCIUM 9.5 mg/dL (8.4-10.5); CARBON DIOXIDE 26 mmol/L (21-33); CHLORIDE 106 mmol/L (98-107); GFR AFRICAN-AMERICAN > 60; GLUCOSE,RANDOM 97 mg/dL (70-110); SODIUM 143 mmol/L (132-148)
[2017-07-13 07:33] LABS: HEMATOCRIT 35.3 % (36.0-48.0); MEAN CELL VOLUME 82.7 fl (80.0-105.0); MEAN CORPUSCULAR HEMOGLOBIN 27.2 pg (25.0-35.0); MEAN CORPUSCULAR HGB CONC 32.9 g/dl (31.0-37.0); MEAN PLATELET VOLUME 9.9 fl (7.0-11.0); RED CELL DISTRIBUTION WIDTH 15.1 % (11.5-14.5); WHITE BLOOD COUNT 11.5 10^3/ul (4.5-11.0)
[2017-07-13] MEDS: Nystatin 100,000 Units/ml Oral Susp 5 ml UD PO SCH (09:31)
[2017-07-13] MEDS: Vancomycin 1gm in NS 250ml 1 GM/250 ML BAG IVPB SCH (09:34)
[2017-07-13] MEDS ORDERED: Fluconazole IV 200mg/100 ml NS 100 MG in Premixed IV 1 EA IVPB SCH (10:00)
--- NOTE | 2017-07-13 19:44 | PN ---
DATE: 07/13/2017 LOCATION: The patient is seen earlier in [facility], bed 2. SUBJECTIVE: The patient states she is doing very well. No fevers. No chills. She is able to swallow. PHYSICAL EXAMINATION: VITAL SIGNS: Temperature is 98, blood pressure is 120/80, respiratory rate of 20, heart rate of 100. HEENT: Unremarkable. NECK: Supple. LUNGS: Have decreased breath sounds. HEART: Normal S1 and S2. ABDOMEN: Soft, nontender. LABORATORY DATA: Reveals the white count is down to 11,000, hemoglobin of 11, and platelets of 352. BUN and creatinine is normal. Urinalysis is noted. HIV is negative. CMV IgG is elevated. CMV IgM is in low. A[place] screen is negative and LFTs are normal. ASSESSMENT AND PLAN: This is a 52-year-old Adrayn female with pharyngitis, and she was on outpatient antibiotics, on clindamycin and Augmentin without improvement, but now has improved with IV vancomycin and Zosyn and Diflucan was added. The patient was anxious to be discharged. Dr. Gilmore had called me to see the patient today, clear her for discharge. I have given the patient a Z-Schuyler and a short course of Diflucan, and follow up with Dr. Gilmore. Case discussed with Dr. Gilmore. Arben Maradiaga MD
--- NOTE | 2017-07-28 06:36 | DS ---
CHIEF COMPLAINT: Fever, fatigue. HISTORY OF PRESENT ILLNESS: Ms. Praveen Beverly is a 52 years old female with past medical history of tonsillitis, came with complaining of throat pain, fatigue, fever for 6 days. Patient was actually seen by her primary care physician as outpatient, gave Augmentin, but throat pain did not get better. She came in the hospital maybe 2 weeks ago then we admitted the patient and gave antibiotics. The ENT was called. ID was called. Patient improved. Sent home with p.o. antibiotics. Seen in my office as outpatient, was improving all of sudden she again started throat pain, fatigue, fever, came back in the emergency room. Admits body aches. No night sweats. No rash. No numbness or tingling. No chest pain. No palpitations or dizziness. No hematuria. No hematochezia. We admitted the patient. ID consult called. Dr. Reynolds and Dr. Maradiaga saw the patient. They did soft tissue of neck CT. ENT consult called. Seen by Dr. Ulices Mccoy, got better. Got IV vancomycin and Zosyn and Diflucan was added by Dr. Maradiaga. Discharged home with Z-Schuyler that showed course of Diflucan and advised to followup with primary care physician ID and ENT. PAST MEDICAL HISTORY: Hypertension, history of tonsillitis, section. FAMILY HISTORY: Father and mother noncontributory. HABITS: No smoking. No drugs, no ethanol. ALLERGIES: Patient is not allergic to any medications. HOME MEDICATIONS: Hydrochlorothiazide, Crestor, antibiotics. REVIEW OF SYSTEMS: Patient is seen and examined at bedside, looking comfortable. Throat pain is gone. No fatigue or fever. No vision changes and no hearing changes. No shortness of breath, coughing or chest pain. No nausea or vomiting. No arthralgia or myalgia. No pruritus or rash. No headache or dizziness or tinnitus or speech changes. PHYSICAL EXAMINATION: VITAL SIGNS: Temperature 98, no fever, blood pressure 120/80, respiratory rate 20, heart rate 100. HEENT: Head is normocephalic and atraumatic. Eyes, PERRLA. Extraocular muscles are intact. Conjunctivae are clear. Nose is patent. Mucous membranes are moist. NECK: Supple. No carotid bruits and no thyromegaly. CHEST: Bilaterally symmetrical. HEART: S1 and S2 positive. LUNGS: Clear to auscultation. ABDOMEN: Soft. Bowel sounds are present. No organomegaly. EXTREMITIES: No edema. No cyanosis. NEUROLOGIC: The patient is awake and alert. Moving all 4 extremities. No focal neurological deficits. LABORATORY DATA: White blood cell is 11.5, hemoglobin 11.6, hematocrit 35.3, platelets of 362. Sodium 143, potassium 4.0, BUN 7, creatinine 0.7. Hemoglobin A1c is 5.7. HDL is 24. ASSESSMENT AND PLAN: Ms. Praveen Beverly is a 52-year-old female who came with pharyngitis outpatient treatment failed. On clindamycin and Augmentin without improvement as outpatient Now, she improved with vancomycin, Zosyn and Diflucan, agree by Dr. Rosenbaum, history of hypertension, hypercholesterolemia, who was anxious to go home. Discussion done with Dr Kam. Patient was discharged with Z-Schuyler and short course of Diflucan. He was advised to follow up with ID and primary care physician. Seen by Dr. Mccoy, ENT. The patient's leukocytosis improved. Hyperglycemia. No evidence of abscess or tonsillopharyngitis. Heterophile antibody is negative for infectious mononucleosis, improved very slowly. Got vancomycin and Zosyn improved on that. Laryngoscopy done by Dr. Mccoy, had oral thrush at the base of the tongue, white streaks in the posterior pharynx, this could be related to oral thrush, but could not consider esophagitis. Dr. Mccoy added nystatin swish and spit and viscous lidocaine for odynophagia. GI and DVT prophylaxis given. We will follow as an outpatient. Michelle Gilmore MD
== END 2017-07-13 14:53 | disposition left against medical advice (07) | DRG 872 ==
LOC: ED 11:22 → ERH 14:44 → 3RNO 16:31 → OBSVTOIN 07-09 23:09
PROVIDERS: ADMIT Internal Medicine; ATTEND Internal Medicine
PROC: 0CJS8ZZ Inspection of Larynx, Via Natural or Artificial Opening Endoscopic (ICD-10-PCS; principal; 2017-07-11)
DX: A41.9 Sepsis, unspecified organism (principal); B37.0 Candidal stomatitis; E87.1 Hypo-osmolality and hyponatremia; K20.8 Other esophagitis; J02.9 Acute pharyngitis, unspecified; J03.90 Acute tonsillitis, unspecified; I10 Essential (primary) hypertension; E78.00 Pure hypercholesterolemia, unspecified; R73.9 Hyperglycemia, unspecified

== ENCOUNTER 2019-01-07 15:19 | Emergency (ER) | payer BC ==
[2019-01-07 16:06] VITALS: BMI 30.2
--- NOTE | 2019-01-07 16:23 | ED PDOC ---
Arrival/HPI - General Chief Complaint: Lower Extremity Problem/Injury Historian: Patient - History of Present Illness Narrative History of Present Illness (Text): 01/07/19 16:19 53 y/o female, pmh including htn/hld, nkda, c/o rt. foot 2nd digit toe pain s/p hyperfexion extenion injury last night as hit it against furniture. Aching pain, aggravated by movement, no numbness or tingling, no rash, no skin pain, no fever or chills, no headache or night sweat, no rash, no other medical or psychological complaints. Past Medical History - Provider Review Nursing Documentation Reviewed: Yes - Infectious Disease Hx of Infectious Diseases: None - Cardiac Hx Cardiac Disorders: Yes Hx Hypertension: Yes - Pulmonary Hx Respiratory Disorders: No - HEENT Hx HEENT Disorder: Yes (tonsillitis) - Renal Hx Renal Disorder: No - Endocrine/Metabolic Hx Endocrine Disorders: No - Hematological/Oncological Hx Blood Disorders: No - Integumentary Hx Dermatological Disorder: No - Musculoskeletal/Rheumatological Hx Falls: No - Gastrointestinal Hx Gastrointestinal Disorders: No - Genitourinary/Gynecological Hx Genitourinary Disorders: No - Psychiatric Hx Psychophysiologic Disorder: No Hx Substance Use: No - Surgical History Hx Section: Yes - Anesthesia Hx Anesthesia: Yes Hx Anesthesia Reactions: No Family/Social History - Physician Review Nursing Documentation Reviewed: Yes Family/Social History: Unknown Family HX Smoking Status: Never Smoked Hx Alcohol Use: No Hx Substance Use: No Allergies/Home Meds Allergies/Adverse Reactions: Allergies No Known Allergies Allergy (Verified 07/02/17 09:43) Home Medications: Home Meds Medication Instructions Recorded Confirmed Hydrochlorothiazide [Microzide] 12.5 mg PO DAILY 07/02/17 01/07/19 Rosuvastatin Calcium [Crestor] 20 mg PO DAILY 07/02/17 01/07/19 Review of Systems - Review of Systems Constitutional: absent: Fatigue, Fevers Eyes: absent: Vision Changes ENT: absent: Hearing Changes Respiratory: absent: SOB, Cough Cardiovascular: absent: Chest Pain Gastrointestinal: absent: Abdominal Pain, Nausea, Vomiting Musculoskeletal: Arthralgias. absent: Back Pain, Neck Pain, Myalgias Skin: absent: Rash, Pruritis, Skin Lesions, Laceration Neurological: absent: Headache, Dizziness Psychiatric: absent: Anxiety, Depression, Suicidal Ideation Physical Exam Vital Signs Reviewed: Yes Vital Signs Temp Pulse Resp BP Pulse Ox 01/07/19 16:09 98.2 F 98 H 18 129/85 99 Temperature: Afebrile Blood Pressure: Normal Pulse: Regular Respiratory Rate: Normal Appearance: Positive for: Well-Appearing, Non-Toxic, Comfortable Pain Distress: Mild Mental Status: Positive for: Alert and Oriented X 3 - Systems Exam Head: Present: Atraumatic, Normocephalic Pupils: Present: PERRL Extroacular Muscles: Present: EOMI Conjunctiva: Present: Normal Mouth: Present: Moist Mucous Membranes Neck: Present: Normal Range of Motion Respiratory/Chest: Present: Clear to Auscultation, Good Air Exchange. No: Respiratory Distress, Accessory Muscle Use Cardiovascular: Present: Regular Rate and Rhythm, Normal S1, S2. No: Murmurs Abdomen: No: Tenderness, Distention, Peritoneal Signs Back: Present: Normal Inspection Upper Extremity: Present: Normal Inspection. No: Cyanosis, Edema Lower Extremity: Present: Normal Inspection, Other (Rt. foot: +ttp on the 2nd digit extensor of the toe with no swelling, no cellulitis or ulcer, FROM without limitation, sensation intact, motor 5/5, +DPPT Pulses, capillary refill< 2 seconds, neurovascular intact, skin intact. ). No: Edema Neurological: Present: GCS=15, CN II-XII Intact, Speech Normal Skin: Present: Warm, Dry, Normal Color. No: Rashes Psychiatric: Present: Alert, Oriented x 3, Normal Insight, Normal Concentration Medical Decision Making ED Course and Treatment: 01/07/19 16:36 -xray -motrin -observe and reassess 01/07/19 18:15 -xray show: Nondisplaced fractures involving the 2nd middle phalanx. Associated soft tissue swelling. -Marilyn tapping applied by me with neurovascular intact, splinted, post op shoe, crutches. -Discharge home with motrin, marilyn tapping, post op shoe, crutches, non-weight bearing, follow up with your own pmd and investor relations manager within 2 days, return to the ER for anynew or worsening signs or symptom - RAD Interpretation Radiology Orders: 01/07/19 16:18 FOOT RIGHT 2ND DIGIT (TOE) [RAD] Stat - PA / DATA BASE DESIGN ANALYST / Resident Statement MD/DO has reviewed & agrees with the documentation as recorded. Disposition/Present on Arrival - Present on Arrival Any Indicators Present on Arrival: No History of DVT/PE: No History of Uncontrolled Diabetes: No Urinary Catheter: No History of Decub. Ulcer: No History Surgical Site Infection Following: None - Disposition Have Diagnosis and Disposition been Completed?: Yes Diagnosis: Toe injury, Toe pain, Toe fracture Disposition: HOME/ ROUTINE Disposition Time: 16:37 Patient Plan: Discharge Patient Problems: Current Active Problems Problem Status Onset Toe injury Acute Toe pain Acute Condition: IMPROVED Additional Instructions: -Discharge home with motrin, marilyn tapping, post op shoe, crutches, non-weight bearing, follow up with your own pmd and investor relations manager within 2 days, return to the ER for anynew or worsening signs or symptom Prescriptions: Ibuprofen [Motrin] 600 mg PO QID PRN #30 tab PRN Reason: Other Referrals: Beti Hernandez [Primary Care Provider] - Follow up with primary Ken Hines DPM [Staff Provider] - Follow up with primary Forms: [facility] (Kinyarwanda), WORK NOTE
[2019-01-07 16:32] VITALS: TEMP 98.2
[2019-01-07 17:50] VITALS: BP 137/78; PULSE 87; RESP 17; O2SAT 100
--- NOTE | 2019-01-07 18:17 | RAD ---
Date of service: 01/07/2019 Indication: injury and pain Right foot 2nd digit radiographs Comparison: None available Findings: Suboptimal rotated lateral and oblique views. Nondisplaced fractures involving the 2nd middle phalanx. Associated soft tissue swelling. The remainder the visualized osseous structures appear intact. No evidence of radiopaque foreign body. Impression: Limited study. Nondisplaced fractures involving the 2nd middle phalanx. Associated soft tissue swelling. Findings discussed with JYOTHI Wiseman on 01/07/19 at 6:11 p.m.
== END 2019-01-07 18:54 | disposition home or self-care (01) ==
LOC: ED 15:19
DX: S92.524A Nondisplaced fracture of middle phalanx of right lesser toe(s), initial encounter for closed fracture (principal); W22.03XA Walked into furniture, initial encounter; I10 Essential (primary) hypertension; E78.5 Hyperlipidemia, unspecified

== ENCOUNTER 2019-03-19 09:56 | Emergency (ER) | payer BC ==
[2019-03-19 09:57] VITALS: BMI 30.2
[2019-03-19 10:07] VITALS: RESP 18
--- NOTE | 2019-03-19 10:27 | ED PDOC ---
Arrival/HPI - General Chief Complaint: Upper Extremity Problem/Injury Time Seen by Provider: 03/19/19 10:04 Historian: Patient - History of Present Illness Narrative History of Present Illness (Text): 03/19/19 10:22 54 year old F with pmh of htn/hld presents with chief complaint of right shoulder pain since yesterday. Patient reports pain started when she got out of bed yesterday and is exacerbated w range of motion. She denies any other trauma or fall. 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 She recalls visiting her PMD yesterday who prescribed her mobic which failed to relieve pain. Denies any neck pain. Denies any numbness. Patient denies any fevers, chills, headache, dizziness, chest pain, shortness of breath, dyspnea on exertion, cough, diaphoresis, abdominal pain, nausea, vomiting, diarrhea, back pain, neck pain. Time/Duration: 24 hours Symptom Onset: Sudden Symptom Course: Unchanged Activities at Onset: Light Context: Home Past Medical History - Provider Review Nursing Documentation Reviewed: Yes - Infectious Disease Hx of Infectious Diseases: None - Cardiac Hx Cardiac Disorders: Yes Hx Hypertension: Yes - Pulmonary Hx Respiratory Disorders: No - HEENT Hx HEENT Disorder: Yes (tonsillitis) - Renal Hx Renal Disorder: No - Endocrine/Metabolic Hx Endocrine Disorders: No - Hematological/Oncological Hx Blood Disorders: No - Integumentary Hx Dermatological Disorder: No - Musculoskeletal/Rheumatological Hx Falls: No - Gastrointestinal Hx Gastrointestinal Disorders: No - Genitourinary/Gynecological Hx Genitourinary Disorders: No - Psychiatric Hx Psychophysiologic Disorder: No Hx Substance Use: No - Surgical History Hx Section: Yes - Anesthesia Hx Anesthesia: Yes Hx Anesthesia Reactions: No Family/Social History - Physician Review Nursing Documentation Reviewed: Yes Family/Social History: Unknown Family HX Smoking Status: Never Smoked Hx Alcohol Use: No Hx Substance Use: No Allergies/Home Meds Allergies/Adverse Reactions: Allergies No Known Allergies Allergy (Verified 03/19/19 10:05) Home Medications: Home Meds Medication Instructions Recorded Confirmed Hydrochlorothiazide [Microzide] 12.5 mg PO DAILY 07/02/17 03/19/19 Rosuvastatin Calcium [Crestor] 20 mg PO DAILY 03/19/19 03/19/19 Review of Systems - Review of Systems Constitutional: absent: Fevers ENT: absent: Rhinorrhea, Epistaxis Respiratory: absent: SOB, Cough Cardiovascular: absent: Chest Pain, Palpitations, Syncope Gastrointestinal: absent: Abdominal Pain, Constipation, Diarrhea, Nausea, Vomiting Genitourinary Female: absent: Dysuria Musculoskeletal: Arthralgias (right shoulder). absent: Back Pain, Neck Pain Skin: absent: Rash, Laceration Neurological: absent: Headache, Dizziness Hemo/Lymphatic: absent: Adenopathy, Easy Bleeding Psychiatric: absent: Anxiety, Depression Physical Exam Vital Signs Reviewed: Yes Vital Signs Temp Pulse Resp BP Pulse Ox 03/19/19 10:06 98.3 F 120 H 18 128/78 99 Temperature: Afebrile Blood Pressure: Normal Pulse: Tachycardic Respiratory Rate: Normal Appearance: Positive for: Well-Appearing, Non-Toxic, Comfortable Pain Distress: Mild Mental Status: Positive for: Alert and Oriented X 3 - Systems Exam Head: Present: Atraumatic, Normocephalic Pupils: Present: PERRL Extroacular Muscles: Present: EOMI Conjunctiva: Present: Normal Mouth: Present: Moist Mucous Membranes Neck: Present: Normal Range of Motion. No: MIDLINE TENDERNESS, Paraspinal Tenderness Respiratory/Chest: Present: Clear to Auscultation, Good Air Exchange. No: Respiratory Distress, Accessory Muscle Use Cardiovascular: Present: Regular Rate and Rhythm, Normal S1, S2. No: Murmurs Abdomen: No: Tenderness, Distention, Peritoneal Signs Back: Present: Normal Inspection. No: Midline Tenderness Upper Extremity: Present: Tenderness (to R shoulder). No: Cyanosis, Edema, Normal ROM (Decrease active ROM to R shoulder, full passive ROM), Swelling Lower Extremity: Present: Normal Inspection. No: Edema Neurological: Present: GCS=15, CN II-XII Intact, Speech Normal, Normal Sensory Function, Gait Normal Skin: Present: Warm, Dry, Normal Color. No: Rashes Psychiatric: Present: Alert, Oriented x 3, Normal Insight, Normal Concentration Medical Decision Making ED Course and Treatment: 03/19/19 10:27 Impression: 54 year old F presents with chief complaint of right shoulder pain since yesterday. She denies any trauma or fall. 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 She recalls visiting her PMD yesterday who prescribed her mobic which failed to relieve pain Plan: -- Toradol -- X Ray right shoulder -- Reassess and disposition Prior Visits: Notes and results from previous visits were reviewed. Progress Notes: Xray consistent with calcific tendonitis. 03/19/19 12:25 Patient reports pain is now resolved and has full ROM . - RAD Interpretation Radiology Orders: 03/19/19 10:14 SHOULDER RIGHT [RAD] Stat - Medication Orders Current Medication Orders: Discontinued Medications Ketorolac Tromethamine (Toradol) 60 mg IM STAT STA Stop: 03/19/19 10:15 - Scribe Statement The provider has reviewed the documentation as recorded by the Celeste Todd All medical record entries made by the Dianaibyaquelin were at my direction and pers onally dictated by me. I have reviewed the chart and agree that the record accurately reflects my personal performance of the history, physical exam, medical decision making, and the department course for this patient. I have also personally directed, reviewed, and agree with the discharge instructions and disposition. Disposition/Present on Arrival - Present on Arrival Any Indicators Present on Arrival: No History of DVT/PE: No History of Uncontrolled Diabetes: No Urinary Catheter: No History of Decub. Ulcer: No History Surgical Site Infection Following: None - Disposition Have Diagnosis and Disposition been Completed?: Yes Diagnosis: Shoulder pain Disposition: HOME/ ROUTINE Disposition Time: 12:26 Patient Plan: Discharge Condition: GOOD Discharge Instructions (ExitCare): Calcific Tendonitis of the Shoulder (DC), Shoulder Pain (DC) Additional Instructions: Follow-up with PMD within 2 days. Take anti-inflammatories for pain. Follow-up with orthopedics for further evaluation. Return to ED if condition worsens. Prescriptions: Naproxen 500 mg PO BID PRN #20 tab PRN Reason: Pain, Moderate (4-7) Referrals: Sukhdev Thomas DO [Staff Provider] - Follow up with primary Forms: [email or web address] (Urdu)
[2019-03-19 12:41] VITALS: TEMP 98
[2019-03-19 12:50] VITALS: BP 130/78; PULSE 98; O2SAT 99
--- NOTE | 2019-03-19 13:24 | RAD ---
Date of service: 03/19/2019 PROCEDURE: Radiographs of the Right Shoulder HISTORY: R shoulder pain COMPARISON: No prior. TECHNIQUE: 3 views obtained. FINDINGS: BONES: Normal. No fracture. JOINTS: Normal. Glenohumeral and acromioclavicular joints preserved. No osteoarthritis. SOFT TISSUES: Calcifications are seen adjacent to the humeral head consistent with calcific tendonitis. Two contiguous calcifications measures 7 mm each OTHER FINDINGS: None. IMPRESSION: Calcific tendinitis
== END 2019-03-19 12:49 | disposition home or self-care (01) ==
LOC: ED 09:56
DX: M25.511 Pain in right shoulder (principal); I10 Essential (primary) hypertension
CPT/HCPCS: 73030; 96372; 99284; J1885